=== PATIENT | female | born 1950 | race Caucasian/White ===

== ENCOUNTER 2019-10-18 00:03 | Outpatient (CLI) | payer BC, SELFPAY ==
[2019-10-18 16:10] LABS: SARS-CoV-2 RNA PCR Negative
== END 2019-10-18 00:04 | disposition home or self-care (01) ==
LOC: ANHCOVIDDT 00:03
PROVIDERS: PCP Internal Medicine; Visit Provider Internal Medicine Gastroenterology
DX: Z01.818 Encounter for other preprocedural examination (principal); Z11.59 Encounter for screening for other viral diseases; Z80.0 Family history of malignant neoplasm of digestive organs
CPT/HCPCS: 87635; C9803; U0003

== ENCOUNTER 2019-10-20 01:25 | Day surgery (SDC) | payer BC, SELFPAY ==
[2019-10-12 09:48] VITALS: BMI 31.1
[2019-10-20 06:44] VITALS: BMI 32.0
[2019-10-20 06:45] VITALS: BP 147/97; PULSE 79; RESP 16; TEMP 36.1; O2SAT 97
[2019-10-20] MEDS: LACTATED RINGERS 1,000 ML 150 ML IV CONT (06:52)
--- NOTE | 2019-10-20 07:21 | WPDANESEPPF ---
Anes - Initial Pre Proc Eval Procedure: Operation Date: 10/20/19 07:30 Proposed Procedures p Screening Colonoscopy - Sony Lopez MD Date/Time: 10/20/19 07:21 Surgeon: Sony Lopez MD Pre Op Diagnosis: Fm Hx Colon CA Patient Data Age: 68 Gender: F Height: 5 ft 5 in Weight: 87.3 kg Last Vital Signs Temp 97 F L 10/20/19 06:45 Pulse 79 10/20/19 06:45 Resp 16 10/20/19 06:45 BP 147/97 H 10/20/19 06:45 Pulse Ox 97 10/20/19 06:45 Allergies Allergy/AdvReac Type Severity Reaction Status Date / Time clarithromycin Allergy Unknown Gastrointestinal Verified 10/20/19 06:42 Upset Sulfa (Sulfonamide Allergy Unknown Gastrointestinal Verified 10/20/19 06:42 Antibiotics) Upset Home Medications Medication Instructions Recorded Confirmed Type valsartan 320 mg tablet 320 mg PO DAILY #90 tablet 06/29/19 10/12/19 Rx pantoprazole 40 mg tablet,delayed 40 mg PO BID #180 tablet 09/16/19 10/12/19 Rx release aspirin 81 mg PO DAILY 10/12/19 10/12/19 History calcium carbonate [Calcium 500] 500 mg PO DAILY 10/12/19 10/12/19 History levothyroxine 137 mcg PO DAILY 10/12/19 10/12/19 History omega 8-xbk-oeg-fish oil [Fish Oil] 1 cap PO DAILY 10/12/19 10/12/19 History Patient hx anesthesia problems: none Family hx anesthesia problems: none [facility] Past Medical History Medical History (Updated 10/20/19 @ 07:21 by Wei Banuelos MD) Adult hypothyroidism Chronic GERD Primary malignant neoplasm of breast Social History Social History Smoking status: Never smoker Alcohol intake: current Anes - Eval Final PreProcedure Day of Procedure 10/20/19 07:21 Patient weight: overweight Heart: regular rate and rhythm Lungs: clear to auscultation Airway: Mallampati scale class II Neurological: alert and oriented Last oral intake: >/= 8 hours ASA classification: III Emergent: no Anesthetic plan: proceed Anesthesia type and monitoring: general GIVS and standard monitoring Informed Consent: The patient's anesthetic plan and its attendant risks and benefits were discussed with the patient/family/POA. Questions were solicited and answers provided to the satisfaction of the patient/family/POA.
--- NOTE | 2019-10-20 07:49 | WPDGICN ---
Assessment and Plan Assessment and plan (1) Family history of malignant neoplasm of colon in relative diagnosed when younger than 50 years of age: Code(s): Z80.0 - Family history of malignant neoplasm of digestive organs Status: Acute Assessment and Plan: Family history of colon cancer in her sister at age 38. She also had colon cancer family history in her grandmother of colon cancer. Plan is for surveillance colonoscopy now and at 5 year intervals in the future. GI Consult Note Consult date/time: 10/20/19 07:49 HPI: Angelica Pearson is a 68 year old female Seen in evaluation at the request of PIT OPERATOR Terrell Edgar. Patient presents for screening colonoscopy. Last exam was 10 years prior to this. Her current weight appetite bowel movements are normal. She denies abdominal pain or bowel habits are normal. She denies any blood in her stools. Her weight has remained stable. Family history is significant her grandmother with colon cancer. Her sister had colon cancer at age 38. Past medical history is significant for thyroid surgery and breast cancer. Review of Systems Review of Systems: All systems reviewed & are unremarkable except as noted in HPI and below PMFSH Past Medical History Medical History Adult hypothyroidism Chronic GERD Primary malignant neoplasm of breast Family History Family History Father Hypertension Family history of coronary artery disease Family history of heart disease in male family member before age 55 Family history of diabetes mellitus in first degree relative Sibling Carcinoma of colon Grandparent Family history of coronary artery disease Carcinoma of colon Other Cerebrovascular accident Diabetes mellitus Family history of cardiovascular disease Family history of gout Family history of malignant neoplasm Family history of malignant neoplasm of male breast Social History Social History Smoking status: Never smoker Alcohol intake: current Meds Home Medications and Allergies Home Medications Medication Instructions Recorded Confirmed Type valsartan 320 mg tablet 320 mg PO DAILY #90 tablet 06/29/19 10/12/19 Rx pantoprazole 40 mg tablet,delayed 40 mg PO BID #180 tablet 09/16/19 10/12/19 Rx release aspirin 81 mg PO DAILY 10/12/19 10/12/19 History calcium carbonate [Calcium 500] 500 mg PO DAILY 10/12/19 10/12/19 History levothyroxine 137 mcg PO DAILY 10/12/19 10/12/19 History omega 7-trb-xdb-fish oil [Fish Oil] 1 cap PO DAILY 10/12/19 10/12/19 History Allergies Allergy/AdvReac Type Severity Reaction Status Date / Time clarithromycin Allergy Unknown Gastrointestinal Verified 10/20/19 06:42 Upset Sulfa (Sulfonamide Allergy Unknown Gastrointestinal Verified 10/20/19 06:42 Antibiotics) Upset Vital Signs Vital Signs - 24 hr 10/20/19 06:45 Temperature 36.1 C L Pulse Rate 79 Respiratory Rate 16 Blood Pressure 147/97 H Pulse Oximetry 97 Exam Narrative: Exam Narrative: Physical exam reveals her to be alert. Vital signs stable. HEENT exam unremarkable. She is anicteric. Lungs are clear to auscultation and percussion. Heart is without murmur or extra sounds. Abdominal exam bowel sounds are present soft nontender with no organomegaly. Digital external rectal exam is normal.
[2019-10-20 07:50] VITALS: BP 130/77; PULSE 87; RESP 19; O2SAT 96
[2019-10-20 08:00] VITALS: BP 135/82; PULSE 78; RESP 14; O2SAT 98
[2019-10-20 08:10] VITALS: BP 147/77; PULSE 80; RESP 24; O2SAT 100
== END 2019-10-20 08:19 | disposition home or self-care (01) ==
PROVIDERS: PCP Internal Medicine; Visit Provider Internal Medicine Gastroenterology
PROC: 0DJD8ZZ Inspection of Lower Intestinal Tract, Via Natural or Artificial Opening Endoscopic (ICD-10-PCS; CPT 45378; principal; 2019-10-20 07:30)
DX: Z12.11 Encounter for screening for malignant neoplasm of colon (principal); K63.5 Polyp of colon; K64.8 Other hemorrhoids; Z80.0 Family history of malignant neoplasm of digestive organs; E03.9 Hypothyroidism, unspecified; K21.9 Gastro-esophageal reflux disease without esophagitis; Z79.82 Long term (current) use of aspirin; Z85.3 Personal history of malignant neoplasm of breast
CPT/HCPCS: 45385; 88305; J2704; J7120

== ENCOUNTER 2021-08-17 09:03 | Outpatient (CLI) | payer BC, SELFPAY ==
--- NOTE | ~2021-08-17 | DEXA_ITS ---
Bone Density Report Name: ARON LI Age: 70 Sex: Female Ethnicity: White Date of : 1950 Indication: postmenopausal; height loss; cancer; Referring Provider: FLORENTIN ALEJANDRE Study: Bone densitometry was performed. Exam Date: August 17, 2021 Accession number: [id number] Bone Density: Region BMD T-score Z-score Classification AP Spine (L1-L4) 1.204 1.4 3.4 Normal Femoral Neck (Left) 0.780 -0.6 1.1 Normal Total Hip (Left) 1.050 0.9 2.3 Normal Total Hip Bilateral Avg 1.047 0.8 2.3 Normal Femoral Neck (Right) 0.864 0.1 1.9 Normal Total Hip (Right) 1.042 0.8 2.2 Normal World Health Organization criteria for BMD impression classify patients as: Normal (T-score at or above -1.0), Osteopenia (T-score between -1.0 and -2.5), or Osteoporosis (T-score at or below -2.5). 10-year Fracture Risk: FRAX not reported because: All T-scores for Spine Total, Hip Total, Femoral Neck at or above -1.0 Previous Exams: Region Exam Age BMD T-score BMD Change BMD Change Date g/cm2 vs Baseline vs Previous AP Spine(L1-L4) 08/17/2021 70 1.204 1.4 0.037(3.2%)* 0.037(3.2%)* 07/22/2018 67 1.167 1.1 Total Hip(Left) 08/17/2021 70 1.050 0.9 0.011(1.0%) 0.011(1.0%) 07/22/2018 67 1.040 0.8 Total Hip(Right) 08/17/2021 70 1.042 0.8 0.033(3.3%)* 0.033(3.3%)* 07/22/2018 67 1.009 0.6 *Denotes significance at 95% confidence level, LSC for AP Spine = 0.022 g/cm2, LSC for Total Hip = 0.027 g/cm2 Clinical Information Provided by Patient: Has used the following medications: Vitamin D, Calcium Has the following medical conditions: Cancer, THYROID, BREAST Patient maximum height was 66 Menopause Age: 54 Onset of menses at age 13 Number of children 2 Impression: The patient has normal bone mass. No significant bone loss was observed. Discussion: BONE DENSITY IS ABOVE THE MINIMUM DESIRABLE LEVEL AT ALL SKELETAL SITES TESTED. This patient?s bone mineral density is above the minimum desirable level (T-score -1.0 or better) at all sites measured. The patient should follow a healthful lifestyle (good nutrition with adequate calcium and vitamin D, and appropriate weight-bearing exercise). Follow-Up: Consider repeating this study in 5 years or sooner if there is some new clinical indication. Reported by: PEDRO on 08/17/2021 9:26:00 AM. Reviewed, dictated and finalized at location Natalee HOFFMAN
== END 2021-08-17 09:04 | disposition home or self-care (01) ==
LOC: ANHIMG 09:06
PROVIDERS: PCP Internal Medicine; Visit Provider Nurse Practitioner
DX: Z78.0 Asymptomatic menopausal state (principal)
CPT/HCPCS: 77080

== ENCOUNTER 2021-09-19 09:48 | Outpatient (CLI) | payer BC, SELFPAY | END 2021-09-19 09:49 | disposition home or self-care (01) | LOC: ANHAUDASC 09:49 | PROVIDERS: PCP Internal Medicine; Visit Provider Otolaryngology | DX: H91.92 Unspecified hearing loss, left ear (principal) | CPT/HCPCS: 92557; 92567 ==

== ENCOUNTER 2024-11-24 12:38 | Outpatient (CLI) | payer BC, SELFPAY ==
--- NOTE | ~2024-11-24 | XR_ITS ---
Clinical Indication: Shortness of breath PA and lateral views of the chest: Comparison: 04/21/2017 Findings: Probable minimal pleural effusions and minimal bibasilar atelectasis. There are subcentimet er nodules in the right upper lobe. Cardiomediastinal silhouette is within normal limits. Bones and s oft tissues are unremarkable. Impression: Minimal pleural effusions and minimal bibasilar atelectasis. Subcentimeter nodules in the right upper lobe, nonspecific. CT advised to evaluate. Reviewed, dictated and finalized at location M. Impression: Minimal pleural effusions and minimal bibasilar atelectasis. Subcentimeter nodules in the right upper lobe, nonspecific. CT advised to evalu ate.
--- OUTSIDE RECORDS SUMMARY | 2024-11-24 12:43 | XMS_ITS | Referral Summary ---
Author Organization [facility] al Address [address] [place] [address] Care Team Providers Care Waste And Batting Waste Chopper Name Role Phone Gonzalo Crenshaw DO Primary Care Provider [phone] Encounters Date Type Department Care Team Description 10/04/2024 3:20 PM CDT Office Visit [facility] Endocrinology Metabolism and Lipid [address], [address] [place] [address] John Weaver MD Post-surgical hypothyroidism (Primary Dx); Papillary thyroid carcinoma (HCC) 09/21/2024 Telephone [facility] Endocrinology Metabolism and Lipid [address] [facility] [address] [place] [address] [place] [address] Aracelis Mckeon RN from Last 3 Months Allergies Active Allergy Reactions Criticality Noted Date Comments Sulfa (Sulfonamide Antibiotics) Stomach upset Low Medications Ca-D3-mag dz-pcrj-avv-racheal -bor 600 mg calcium- 20 mcg-50 mg tablet daily. Act sedrick omega-3 fatty acids-fish oil 300-1,000 mg capsule daily. Active pantoprazole DR (PROTONIX) 40 mg EC tablet 2 times daily. Active cholecalciferol (VITAMIN D-3) 1,000 unit tablet daily. Active Lactobacillus acidophilus 10 billion cell capsule Take by mouth once. Active valsartan-hydroc hlorothiazide (DIOVAN-HCT) 320-25 mg per tablet Take 1 tablet by mouth daily Active busPIRone (BUSPAR) 15 mg tablet Take by mouth 2 (two) times a day as needed 08/21/2022 Active levothyroxine (SYNTHROID) 100 mcg tablet TAKE 1 TABLET BY MOUTH 6 DAYS EVERY WEEK AND 2 TABLET WITHOUT 1 DAY A WEEK. TOTAL OF 8 TABLETS A WEEK 104 tablet 3 05/04/2024 Active Active Problems Problem Noted Date Diagnosed Date Chest wall erythema 09/16/2022 Assessment & Plan (09/16/2022 3:37 PM CDT): Itching and patient history suggest contact dermatitis, reports this improves with systemic steroids Will give short course PO prednisone and advised to contact her PCP or automobile club information clerk Advised topical HC for itching as well History of breast cancer 06/23/2019 Encounter for gynecological examination without abnormal finding 05/27/2019 History of left mastectomy 05/27/2019 Post-surgical hypothyroidism 09/14/2018 Assessment & Plan (10/04/2024 3:19 PM CDT): Continue current levothyroxine dose. TSH at goal Assessment & Plan (09/22/2023 3:45 PM CDT): Continue current levothyroxine dose. TSH at goal Assessment & Plan (09/16/2022 3:35 PM CDT): Continue current levothyroxine dose. Will check thyroid function test and adjust levothyroxine dose accordingly. Assessment & Plan (09/17/2021 4:20 PM CDT): Continue current levothyroxine dose. Will check thyroid function test and adjust levothyroxine dose accordingly. TSH goal lower normal Assessment & Plan (09/18/2020 5:20 PM CDT): Lower levothyroxine dose to 100 mcg every day Will recheck TFT in 2-3 months TSH goal lower normal Assessment & Plan (09/14/2018 2:38 PM CDT): Continue levothyroxine 150 mcg daily Advised goal is lower normal Advised about proper intake and to separate from PPI and calcium supplements Papillary thyroid carcinoma 09/14/2018 Assessment & Plan (10/04/2024 3:19 PM CDT): No evidence of tumor recurrence on biochemical and radiological data so far Will plan follow-up with thyroid function test with a TSH goal normal. Biochemical evaluation with thyroid tumor markers Plan future neck ultrasound as indicated/needed Assessment & Plan (09/22/2023 3:50 PM CDT): No evidence of tumor recurrence on biochemical and radiological data so far Will plan follow-up with thyroid function test with a TSH goal normal. Biochemical evaluation with thyroid tumor markers - still ending Plan future neck ultrasound as indicated/needed Assessment & Plan (09/16/2022 3:36 PM CDT): No evidence of tumor recurrence on biochemical and radiological data so far Will plan follow-up with thyroid function test with a TSH goal normal. Biochemical evaluation with thyroid tumor markers. Plan future neck ultrasound as indicated Assessment & Plan (09/17/2021 4:21 PM CDT): No evidence of tumor recurrence on biochemical and radiological data so far Will plan follow-up with thyroid function test with a TSH goal lower normal. Biochemical evaluation with thyroid tumor markers. Plan future neck ultrasound as indicated Assessment & Plan (09/18/2020 5:26 PM CDT): No evidence of tumor recurrence on biochemical and radiological data so far Labs reviewed: TSH remain supressed - Tumor markers undetected Will plan follow-up with thyroid function test with a TSH goal lower normal. Biochemical evaluation with thyroid tumor markers. 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 Malignant neoplasm of breast 06/11/2017 Malignant neoplasm of thyroid gland 06/11/2017 Absence of breast 04/24/2016 Gastroesophageal reflux disease 05/05/2013 Hypertension 05/05/2013 Malignant neoplasm of breast 05/17/2011 Mass of breast 04/03/2011 Hyperlipidemia 03/28/2011 Cancer Immunizations Immunization Administration Dates Next Due Influenza, Quadrivalent, Carol l Culture-based MDCK, Preservative Free, Antibiotic Free, Intramuscular 06/07/2022,03/06/2017 Influenza, Quadrivalent, Hig h Dose, Preservative Free, Intrr 04/06/2020 Influenza, Trivalent, High D ose, Split, Preservative Free, Intramuscular 04/01/2019 Influenza, Unspecified 06/02/2014,06/28/2013 Pneumococcal Conjugate PCV 13 04/06/2020, 019 Tdap 07/07/2019 Social History Tobacco Use Types Packs/Day Years Used Date Smoking Tobacco: Never Smokeless Tobacco: Never Tobacco Cessation:Counseling Given: Not Answered Alcohol Use Standard Drinks/Week Comments No 0 (1 standard drink = 0.6 oz pur e alcohol) AUDIT-C Answer Date Recorded Q1: How often do you have a drink containing alc ohol? Monthly or less 08/20/2024 Q2: How many drinks containi ng alcohol do you have on a typical day when you are drinking? 1 or 2 08/20/2024 Q3: How often do you have si x or more drinks on one occasion? 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 Gender Identity Not on file Sexual Orientation Not on file Last Filed Vital Signs Vital Sign Reading Time Taken Comments Blood Pressure 127/81 10/04/2024 2:40 PM CDT Pulse 72 10/04/2024 2:40 PM CDT Temperature 36.3 C (97.3 F) 10/04/2024 2:40 PM CDT Respiratory Rate 17 10/04/2024 2:40 PM CDT Oxygen Saturation 98% 10/04/2024 2:40 PM CDT Inhaled Oxygen Concentration - - Weight 87.2 kg (192 lb 3.2 oz) 10/04/2024 2:40 P M CDT Height 165.1 cm (5' 5) 10/04/2024 2:40 PM CDT Body Mass Index 31.98 10/04/2024 2:40 PM CDT Plan of Treatment Not on file Procedures Procedure Name Priority Date/Time Associated Diagnosis Comments THYROGLOBULIN Routine 09/24/2024 9:24 AM CDT THYROID CAN MONITOR Routine 09/24/2024 9 :24 AM CDT Papillary thyroid carcinoma (HCC) T4, FREE Routine 09/24/2024 9:24 AM CDT Papillary thyroid carcinoma (HCC) TSH Routine 09/24/2024 9:24 AM CDT Papillary thyroid carcinoma (HCC) SCREENING MAMMOGRAM RIGHT W ELADIO UNILATERAL ONLY Schedule Routine, Read Routine (OP Routine) 08/20/2024 10:36 AM CDT Screening mammogram, encounter for from Last 3 Months or Most Recently Relevant to Health Maintenance Results * THYROGLOBULIN (09/24/2024 9:24 AM CDT) Thyroglobulin <0.1 ng/mL [facility], Comment: Reference Range: Athyrotic: <0.1 Reference range applies to differentiated thyroid cancer patients following treatment. The presence of measurable thyroglobulin indicates the presence of thyroglobulin-producing thyroid tissue. Clinical correlation is advised. This Thyroglobulin test was performed using the Nayeli Altenburg Chemiluminescent method. Values obtained from different assay methods cannot be used interchangeably. Thyroglobulin levels, regardless of value, should not be interpreted as absolute evidence of the presence or absence of disease. 09/24/2024 9:24 AM CDT 09/24/2024 9:25 AM CDT Narrative [facility] - 09/29/2024 3:16 PM CDT FASTING:YES FASTING: YES John Weaver MD LAB BLOOD ORDERABLES Final Resu lt [facility], [address] [place] [address] * Thyroid Cancer (Thyroglobulin) Monitor (09/24/2024 9:24 AM CDT) Thyroglobulin ab <1 < OR = 1 IU/mL [facility], Comment: This Thyroglobulin antibody test was performed using the Nayeli Altenburg Chemiluminescent method. Values obtained from different assay methods cannot be used interchangeably. Thyroglobulin antibody levels, regardless of value, should not be interpreted as absolute evidence of the presence or absence of disease. Blood 09/24/2024 9:24 AM CDT 09/24/2024 9:25 AM CDT Narrative [facility] - 09/29/2024 3:16 PM CDT FASTING:YES FASTING: YES John Weaver MD LAB BLOOD ORDERABLES Final Resu lt Performing Organization Address [facility]/ZIP Co de Phone Number [facility], [address] [place] [address] * TSH (09/24/2024 9:24 AM CDT) TSH 0.64 0.40 - 4.50 mIU/L [facility] Blood 09/24/2024 9:24 AM CDT 09/24/2024 9:25 AM CDT Narrative [facility] - 09/29/2024 3:16 PM CDT FASTING:YES FASTING: YES us John Weaver MD LAB BLOOD ORDERABLES Final Resu lt [facility] [address] [place] [address] * T4, free (09/24/2024 9:24 AM CDT) Free T4 1.5 0.8 - 1.8 ng/dL [facility] Blood 09/24/2024 9:24 AM CDT 09/24/2024 9:25 AM CDT Narrative [facility] - 09/29/2024 3:16 PM CDT FASTING:YES FASTING: YES John Weaver MD LAB BLOOD ORDERABLES Final Resu lt [facility] [address] [place] [address] * Screening Mammogram Right W Eladio Unilateral Only (08/20/2024 10:36 AM CDT) Anatomical Region Laterality Modality Breast Right Mammography Narrative 08/23/2024 10:51 AM CDT Mammogram Technique: Right Breast Digital Breast Tomosynthesis, Unilateral C-view 2D Screening mammogram. Views obtained: right craniocaudal and right mediolateral oblique. Computer Aided Detection was performed. Mammogram Findings: The present examination has been compared to prior imaging studies performed at [facility] on 07/04/2021, 07/31/2022 and 08/06/2023. There are scattered areas of fibroglandular density. There is no suspicious abnormality in the right breast. Patient status post contralateral mastectomy for personal history of breast cancer. Impression: There is no mammographic evidence of malignancy. Annual screening mammography is recommended. OVERALL FINAL ASSESSMENT: BI-RADS CATEGORY 1: Negative. Procedure Note Susi Tompkins MD - 08/23/2024 Mammogram Technique: Right Breast Digital Breast Tomosynthesis, Unilateral C-view 2DScreening mammogram. Views obtained: right craniocaudal and right mediolateral oblique. Computer Aided Detection was performed. Mammogram Findings: The present examination has been compared to prior imaging studies performed at [facility] on 07/04/2021, 07/31/2022 and 08/06/2023. There are scattered areas of fibroglandular density. There is no suspicious abnormality in the right breast. Patient status post contralateral mastectomy for personal history ofbreast cancer. Impression: There is no mammographic evidence of malignancy. Annual screening mammography is recommended. OVERALL FINAL ASSESSMENT: BI-RADS CATEGORY 1: Negative. us Self Screening Mammogram IMG MAMMO PROCEDURES Fi nal Result from Last 3 Months or Most Recently Relevant to Health [place] [id number] MEDICARE [facility] Address: [address] [address] [place] [facility] ACCESS MEDICARE [facility] MEDICARE Care Teams Waste And Batting Waste Chopper Relationship Specialty Start Date End Date Gonzalo Crenshaw DO [address] [facility] [place] [address] PCP - General Internal Medicine 08/09/24
--- OUTSIDE RECORDS SUMMARY | 2024-11-24 12:43 | XMS_ITS | Encounter Summary ---
Author Organization [email or web address] Address [address] [place] [address] Phone Care Team Providers Care Atm Mechanic Name Role Phone Lavon Smith MD Primary Care Provider [phone] Gonzalo Crenshaw DO Primary Care Provider [phone] Shar Ricketts MD Primary Care Provider [phone] Gonzalo Crenshaw DO Primary Care Provider [phone] Encounter Details Date Type Department Care Team (Latest Contact Info) Description 09/07/2015 Orders Only [facility] Scanning, Provider Social History Tobacco Use Types Packs/Day Years Used Date Smoking Tobacco: Never Assessed Comments Unknown Sex and Gender Information Value Date Recorded Sex Assigned at Not on file 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 Gender Identity Not on file Sexual Orientation Not on file documented as of this encounter Plan of Treatment Not on file documented as of this encounter Procedures Procedure Name Priority Date/Time Associated Diagnosis Comments SCAN - LABS 09/07/2015 documented in this encounter Results * SCAN - LABS (09/07/2015) us Provider Scanning Final Result documented in this encounter Visit Diagnoses Not on filedocumented in this encounter Care Teams Atm Mechanic Relationship Specialty Start Date End Date Lavon Smith MD [address] [facility] [place], [place] [id number] PCP - General 10/15/16 06/22/19 Gonzalo Crenshaw DO [address] [place] [address] PCP - General Internal Medicine 06/23/19 08/05/22 Shar Ricketts MD [address] [place] [address] PCP - General Internal Medicine 08/06/22 08/08/24 Gonzalo Crenshaw DO [address] [place] [address] PCP - General Internal Medicine 08/09/24 documented as of this encounter
--- OUTSIDE RECORDS SUMMARY | 2024-11-24 12:43 | XMS_ITS | Clinical Summary ---
Author Organization 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 Malignant neoplasm of breast 06/11/2017 Malignant neoplasm of thyroid gland 06/11/2017 Absence of breast 04/24/2016 Gastroesophageal reflux disease 05/05/2013 Hypertension 05/05/2013 Malignant neoplasm of breast 05/17/2011 Mass of breast 04/03/2011 Hyperlipidemia 03/28/2011 Cancer Encounters Date Type Department Care Team Description 10/04/2024 3:20 PM CDT Office Visit [facility] Endocrinology Metabolism and Lipid [address] [facility] [address], [address] [place] [address] John Weaver MD Post-surgical hypothyroidism (Primary Dx); Papillary thyroid carcinoma (HCC) 09/21/2024 Telephone [facility] Endocrinology Metabolism and Lipid [address] 5th [place] [address] [place] [address] Aracelis Mckeon RN from Last 3 Months Immunizations Immunization Administration Dates Next Due Influenza, Quadrivalent, Carol l Culture-based MDCK, Preservative Free, Antibiotic Free, Intramuscular 06/07/2022,03/06/2017 Influenza, Quadrivalent, Hig h Dose, Preservative Free, Intrr 04/06/2020 Influenza, Trivalent, High D ose, Split, Preservative Free, Intramuscular 04/01/2019 Influenza, Unspecified 06/02/2014,06/28/2013 Pneumococcal Conjugate PCV 13 04/06/2020, 019 Tdap 07/07/2019 Surgical History Surgery Date Site/Laterality Comments [place] DELIVERY ONLY Section - (Added by TW Conv) THYROIDECTOMY, PARTIAL Near-Total Thyroidectomy - (Added by TW Conv) MASTECTOMY Breast Surgery Mastectomy - (Added by TW Conv) CA COLONOSCOPY FLX DX W/DAINA J SPEC WHEN PFRMD Complete Colonoscopy - (Added by TW Conv) Medical History Medical History Date Comments Personal history of malignan t neoplasm of thyroid Thyroid Cancer - (Added by T W Conv) Encounter for gynecological examination without abnormal finding Encounter for routine gyneco logical examination - (Added by TW Conv) Pelvic and perineal pain Pelvic pain - (Added by TW Conv) Acute myocardial infarction (HCC) Acute myocardial infarction - (Added by TW Conv) Personal history of malignan t neoplasm of thyroid History of thyroid cancer - (Added by TW Conv) History of recurrent pneumonia H istory of pneumonia - (Added by TW Conv) Migraine without status migr ainosus, not intractable Migraine - (Added by TW Conv ) Hypertension High cholesterol Cancer (HCC) 2010 lEFT BREAST MASECTOMY Family History Medical History Relation Name Comments Diabetes Father Diabetes Mellit us - (Added by TW Conv) Heart disease Father Heart Disease - (Added by TW Conv) Colon cancer Maternal Grandmother alive at 97 Mother Breast cancer Mother's Sister Great Breast Canc er - (Added by TW Conv) MEDICAL TRANSCRIPTION RADIOLOGY malignancy Niece Colon cancer Sister Alive at age 67 Relation Name Status Comments Daughter Alive Father Maternal Grandmother Mother Alive Mother's Sister Great Niece Alive Sister Alive Son Alive Social History Tobacco Use Types Packs/Day Years [...] on file 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 Gender Identity Not on file Sexual Orientation Not on file Obstetrics History Para Term AB IAB SAB Ectopic Multiple Livin g Live Births 2 2 2 Date Outcome GA Total Labor Labor/2nd/3rd Weight Sex Type Anes PTL Jennifer A1 A5 Name Clin Para Para Last Filed Vital Signs Vital Sign Reading [...] 10/04/2024 2:40 PM CDT Plan of Treatment Health Maintenance Due Date Last Done Comments Colon Cancer Screening-Colonoscopy 1950 Depression Screening 1950 Fall Risk Assessment 1950 Hepatitis C Screening 1950 Osteoporosis Screening-Bone Density Scan 1952 Hepatitis B Screening 1970 Zoster Vaccine (1 of 2) 2002 Pneumococcal vaccine 65+ (2 of 2 - PPSV23) 04/06/2021 04/06/2020, 04/01/2019 Covid-19 Vaccine (2023-2 5 season) 2024 03/01/2021, 07/24/2020, 07/01/2020 Influenza Vaccine (#1) 2025 3, 04/06/2020, 04/01/2019, Additional history exists Breast Cancer Screening-Mammogram 08/20/2025 08/20/2024, 08/06/2023, 07/31/2022, Additional history exists Well Visit 65+ 08/20/2025 08/20/2024 DTaP/Tdap/Td Vaccine (2 - Td or Tdap) 07/07/2029 07/07/2019 Procedures Procedure Name Priority Date/Time Associated Diagnosis [...] (09/24/2024 9:24 AM CDT) Thyroglobulin <0.1 ng/mL [facility], Comment: Reference Range: Athyrotic: <0.1 Reference range applies to differentiated thyroid cancer patients following treatment. The presence of measurable thyroglobulin indicates the presence of thyroglobulin-producing thyroid tissue. Clinical correlation is advised. This Thyroglobulin test was performed using the Nayeli [place] Chemiluminescent method. Values obtained from different assay methods cannot be used interchangeably. Thyroglobulin levels, regardless of value, should not be interpreted as absolute evidence of the presence or absence of disease. 09/24/2024 9:24 AM CDT 09/24/2024 9:25 AM CDT Narrative [facility] - 09/29/2024 3:16 PM CDT FASTING:YES FASTING: YES John Weaver MD LAB BLOOD ORDERABLES Final Resu lt Performing Organization Address [facility] Co de Phone Number [facility], [address] [place] [address] * Thyroid Cancer (Thyroglobulin) Monitor (09/24/2024 9:24 AM CDT) Pathologist [facility] Thyroglobulin ab <1 < OR = 1 IU/mL [employer]/N [facility], Comment: This Thyroglobulin antibody test was performed using the Brandtone Chemiluminescent method. Values obtained from different assay [...] ORDERABLES Final Resu lt Performing Organization Address [facility] de Phone Number [employer], [address] [place] [address] * TSH (09/24/2024 9:24 AM CDT) [facility] TSH 0.64 0.40 - 4.50 mIU/L [facility] Blood 09/24/2024 9:24 AM CDT 09/24/2024 9:25 AM CDT Narrative [facility] - 09/29/2024 3:16 PM CDT FASTING:YES FASTING: YES us John Weaver MD LAB BLOOD ORDERABLES Final Resu lt Performing Organization Address City/[facility]/ZIP Co de Phone Number [facility] [address] [place] [phone] * T4, free (09/24/2024 9:24 AM CDT) Free T4 1.5 0.8 - 1.8 ng/dL [facility] Blood 09/24/2024 9:24 AM CDT 09/24/2024 9:25 AM CDT Narrative [facility] - 09/29/2024 3:16 PM CDT FASTING:YES FASTING: YES John Weaver MD LAB BLOOD ORDERABLES Final Resu lt PEGGY [facility] [address] [place] [address] * Screening Mammogram Right W Eladio Unilateral Only (08/20/2024 10:36 AM CDT) Anatomical Region Laterality Modality Breast Right Mammography Narrative 08/23/2024 10:51 AM CDT Mammogram Technique: Right Breast Digital Breast Tomosynthesis, Unilateral C-view 2D Screening mammogram. Views obtained: right craniocaudal and right mediolateral oblique. Computer Aided Detection was performed. Mammogram Findings: The present examination has been compared to prior imaging studies performed at [facility] on 07/04/2021, 07/31/2022 and 08/06/2023. There are [...] compared to prior imaging studies performed at [facility] on 07/04/2021, 07/31/2022 and 08/06/2023. There are [...] Most Recently Relevant to Health Maintenance Insurance [employer] [place]IC[place] [employer] [place] [facility] MEDIC[facility] Care Teams Boat Joiner Relationship Specialty Start Date End Date Gonzalo Crenshaw DO [address] [address] PCP - General Internal Medicine 08/09/24
== END 2024-11-24 12:39 | disposition home or self-care (01) ==
PROVIDERS: PCP Nurse Practitioner; Visit Provider Internal Medicine
DX: J90 Pleural effusion, not elsewhere classified (principal); J98.11 Atelectasis; R91.8 Other nonspecific abnormal finding of lung field
CPT/HCPCS: 71046

== ENCOUNTER 2024-11-25 08:30 | Emergency (ER) | payer BC, SELFPAY ==
[2024-11-25] VITALS (9 sets, daily range): BP systolic 136–162; BP diastolic 79–94; PULSE 64–75; RESP 14–20; TEMP 36.5; O2SAT 94–98
--- NOTE | ~2024-11-25 | US_ITS ---
EXAMINATION: US venous doppler [facility] DATE: 11/25/2024 10:20 INDICATION: Swelling TECHNIQUE: Grayscale ultrasound images without and with compression and Doppler ultrasound images of the bilateral lower extremity veins were obtained. COMPARISON: None. FINDINGS: The visualized portions of right common femoral vein, profunda (deep) femoral vein, femoral vein, pop liteal vein, peroneal veins, posterior tibial veins, and greater saphenous vein outflow are patent. The visualized portions of left common femoral vein, profunda femoral vein, femoral vein, popliteal v ein, peroneal veins, posterior tibial veins, and greater saphenous vein outflow are patent. IMPRESSION: 1. No deep venous thrombosis. Reviewed, dictated and finalized at location A.
--- NOTE | ~2024-11-25 | CT_ITS ---
EXAMINATION: CTA chest PE protocol DATE: 11/25/2024 09:42 INDICATION: Shortness of breath. Recent travel. Positive d-dimer. TECHNIQUE: Computed tomography (CT) pulmonary angiogram of the chest was performed with 100 mL Omnipa que-350 intravenous contrast. Additional 3D reconstructions utilizing coronal maximum intensity proje ction (MIP) were performed. Automated exposure control and iterative reconstruction technique were em ployed. The dose-length product was 503.22 mGy-cm. COMPARISON: 09/20/2016 FINDINGS: No pulmonary embolism. Small bilateral dependently layering bilateral pleural effusions with compress esdrick atelectasis in the dependent lower lobes. Cluster of multiple small calcified nodules in the righ t upper lobe consistent with sequela of chronic granulomatous disease. No pulmonary edema or suspecte d pneumonia. No pneumothorax. Heart size is normal. No pericardial effusion. Thoracic aorta is normal in caliber with no dissection. Status post left mastectomy with left breast implant. No pathological ly enlarged thoracic lymphadenopathy. Small sliding-type hiatal hernia. Small amount of perihepatic a scites. Several low-attenuation hepatic cysts measuring up to 12 mm. IMPRESSION: 1. No pulmonary embolism. 2. Small bilateral pleural effusions with dependent compressive atelectasis in bilateral lower lobes. 3. Small amount of perihepatic ascites. 4. Small sliding-type hiatal hernia. Reviewed, dictated and finalized at location B.
--- OUTSIDE RECORDS SUMMARY | 2024-11-25 08:33 | XMS_ITS | Encounter Summary ---
Author Organization [facility] [employer] [facility] Address [address] [place] [address] Phone Care Team Providers Care Supervisor Plasma Name Role Phone Lavon Smith MD Primary Care Provider Gonzalo Crenshaw DO Primary Care Provider [phone] Shar Ricketts MD Primary Care Provider [phone] Gonzalo Crenshaw DO Primary Care Provider [phone] Encounter Details Date Type Department Care Team (Latest Contact Info) Description 09/07/2015 Orders Only [facility] Scanning, Provider Social History Tobacco Use Types Packs/Day Years Used Date Smoking Tobacco: Never Assessed Comments Unknown Sex and Gender Information Value Date Recorded Sex Assigned at Not on file 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 Gender Identity Not on file Sexual Orientation [...] on filedocumented in this encounter Care Teams Supervisor Plasma Relationship Specialty Start Date End Date Lavon Smith MD [address] [facility] MEDICINE [place], [place] [address] PCP - General 10/15/16 06/22/19 Gonzalo Crenshaw DO [address] [place] [address] PCP - General Internal Medicine 06/23/19 08/05/22 Shar Ricketts MD [address] [place] [address] PCP - General Internal Medicine 08/06/22 08/08/24 Gonzalo Crenshaw DO [address] [place] [address] PCP - General Internal Medicine 08/09/24 documented as of this encounter
--- OUTSIDE RECORDS SUMMARY | 2024-11-25 08:33 | XMS_ITS | Referral Summary ---
Author Organization [facility] al Address [address] [place] [address] Care Team Providers Care Auto Clocks Repairer Name Role Phone Gonzalo Crenshaw DO Primary Care Provider Encounters Date Type Department Care Team Description 10/04/2024 3:20 PM CDT Office Visit [facility] Endocrinology Metabolism and Lipid [address] Floor 1, [address] [place] [address] John Weaver MD Post-surgical hypothyroidism (Primary Dx); Papillary thyroid carcinoma (HCC) 09/21/2024 Telephone [facility] Endocrinology Metabolism and Lipid [address] 5th [place] [address] [place] [address] Aracelis Mckeon RN from Last 3 Months Allergies Active Allergy Reactions Criticality Noted Date Comments Sulfa (Sulfonamide Antibiotics) Stomach upset Low Medications Ca-D3-mag ho-djrv-idb-racheal -bor 600 mg calcium- 20 mcg-50 mg [...] and advised to contact her PCP or veneer joiner Advised topical HC for itching as well [...] on file 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, Comment: Reference Range: Athyrotic: <0.1 Reference range applies to differentiated thyroid cancer patients following treatment. The presence of measurable thyroglobulin indicates the presence of thyroglobulin-producing thyroid tissue. Clinical correlation is advised. This Thyroglobulin test was performed using the Nayeli [place] Chemiluminescent method. Values obtained from different assay methods cannot be used interchangeably. Thyroglobulin levels, regardless of value, should not be interpreted as absolute evidence of the presence or absence of disease. 09/24/2024 9:24 AM CDT 09/24/2024 9:25 AM CDT Narrative [facility] - 09/29/2024 3:16 PM CDT FASTING:YES FASTING: YES John Weaver MD LAB BLOOD ORDERABLES Final Resu lt [facility], [address] [place] [address] * Thyroid Cancer (Thyroglobulin) Monitor (09/24/2024 9:24 AM CDT) Thyroglobulin ab <1 < OR = 1 IU/mL [facility], Comment: This Thyroglobulin antibody test was performed using the Nayeli [place] Chemiluminescent method. Values obtained from different assay methods cannot be used interchangeably. Thyroglobulin antibody levels, regardless of value, should not be interpreted as absolute evidence of the presence or absence of disease. Blood 09/24/2024 9:24 AM CDT 09/24/2024 9:25 AM CDT Narrative [facility] - 09/29/2024 3:16 PM CDT FASTING:YES FASTING: YES John Weaver MD LAB BLOOD ORDERABLES Final Resu lt Performing Organization Address [facility]/ZIP Co de Phone Number [facility], [address] [place] [address] * TSH (09/24/2024 9:24 AM CDT) TSH 0.64 0.40 - 4.50 mIU/L [facility] Blood 09/24/2024 9:24 AM CDT 09/24/2024 9:25 AM CDT Narrative [facility] - 09/29/2024 3:16 PM CDT FASTING:YES FASTING: YES us John Weaver MD LAB BLOOD ORDERABLES Final Resu lt [facility] [address] [place] [address] * T4, free (09/24/2024 9:24 AM CDT) Free T4 1.5 0.8 - 1.8 ng/dL [facility] Blood 09/24/2024 9:24 AM CDT 09/24/2024 9:25 AM CDT Narrative [facility] - 09/29/2024 3:16 PM CDT FASTING:YES FASTING: YES John Weaver MD LAB BLOOD ORDERABLES Final Resu lt [facility] [address] [place] [address] * Screening Mammogram Right W Eladio Unilateral [...] prior imaging studies performed at [facility] on 07/04/2021, 07/31/2022 and 08/06/2023. There are [...] prior imaging studies performed at [facility] on 07/04/2021, 07/31/2022 and 08/06/2023. There are [...] Most Recently Relevant [place] [id number] [place]ARE [place] [facility] MEDICARE [facility] MEDICARE Care Teams Auto Clocks Repairer Relationship Specialty Start Date End Date Gonzalo Crenshaw DO [address] [facility] [place] [address] PCP - General Internal Medicine 08/09/24
--- OUTSIDE RECORDS SUMMARY | 2024-11-25 08:33 | XMS_ITS | Clinical Summary ---
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 Advised topical HC for itching as well [...] Description 10/04/2024 3:20 PM CDT Office Visit [facility] Endocrinology Metabolism and Lipid [address] [facility] Floor [address], [address] [place] [address] John Weaver MD Post-surgical hypothyroidism (Primary Dx); Papillary thyroid carcinoma (HCC) 09/21/2024 Telephone [facility] Endocrinology Metabolism and Lipid [address] [facility] 5th [place] [address] [place] [address] Aracelis Mckeon RN from Last 3 Months Immunizations Immunization Administration Dates Next Due Influenza, Quadrivalent, Carol l Culture-based MDCK, Preservative Free, Antibiotic Free, Intramuscular 06/07/2022,03/06/2017 Influenza, Quadrivalent, Hig h Dose, Preservative Free, Intrr 04/06/2020 Influenza, Trivalent, High D ose, Split, Preservative Free, Intramuscular 04/01/2019 Influenza, Unspecified 06/02/2014,06/28/2013 Pneumococcal Conjugate PCV 13 04/06/2020, 019 Tdap 07/07/2019 Surgical History Surgery Date Site/Laterality Comments [place] DELIVERY ONLY Section - (Added by TW Conv) THYROIDECTOMY, PARTIAL Near-Total Thyroidectomy - (Added by TW Conv) MASTECTOMY Breast Surgery Mastectomy - (Added by TW Conv) [place] COLONOSCOPY FLX DX W/DAINA J SPEC WHEN [...] Canc er - (Added by TW Conv) 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 The presence of measurable thyroglobulin indicates the presence of thyroglobulin-producing thyroid tissue. Clinical correlation is advised. This Thyroglobulin test was performed using the Nayeli [place] Chemiluminescent method. Values obtained from different assay methods cannot be used interchangeably. Thyroglobulin levels, regardless of value, should not be interpreted as absolute evidence of the presence or absence of disease. 09/24/2024 9:24 AM CDT 09/24/2024 9:25 AM CDT Narrative [facility] - 09/29/2024 3:16 PM CDT FASTING:YES FASTING: YES John Weaver MD LAB BLOOD ORDERABLES Final Resu lt Performing Organization Address [facility] Co de Phone Number [employer], [address] [place] [address] * Thyroid Cancer (Thyroglobulin) Monitor (09/24/2024 9:24 AM CDT) Pathologist [facility] Thyroglobulin ab <1 < OR = 1 IU/mL [facility]/N [facility], Comment: This Thyroglobulin antibody test was performed using the Bl[employer]s Chemiluminescent method. Values obtained from different assay [...] ORDERABLES Final Resu lt Performing Organization Address [facility] de Phone Number [employer]/[facility], [address] [place] [address] * TSH (09/24/2024 9:24 AM CDT) [facility] TSH 0.64 0.40 - 4.50 mIU/L [facility] Blood 09/24/2024 9:24 AM CDT 09/24/2024 9:25 AM CDT Narrative [facility] - 09/29/2024 3:16 PM CDT FASTING:YES FASTING: YES us John Weaver MD LAB BLOOD ORDERABLES Final Resu lt Performing Organization Address City/[facility]/ZIP Co de Phone Number [facility] [address] [place] [phone] * T4, free (09/24/2024 9:24 AM CDT) Free T4 1.5 0.8 - 1.8 ng/dL [facility] Blood 09/24/2024 9:24 AM CDT 09/24/2024 9:25 AM CDT Narrative [facility] - 09/29/2024 3:16 PM CDT FASTING:YES FASTING: YES John Weaver MD LAB BLOOD ORDERABLES Final Resu lt PEGGY [facility] [address] [place] [phone] * Screening Mammogram Right W Eladio Unilateral Only (08/20/2024 10:36 AM CDT) Anatomical Region Laterality Modality Breast Right Mammography Narrative 08/23/2024 10:51 AM CDT Mammogram Technique: Right Breast Digital Breast Tomosynthesis, Unilateral C-view 2D Screening mammogram. Views obtained: right craniocaudal and right mediolateral oblique. Computer Aided Detection was performed. Mammogram Findings: The present examination has been compared to prior imaging studies performed at [facility] on 07/04/2021, 07/31/2022 and 08/06/2023. There [...] compared to prior imaging studies performed at [facility] on 07/04/2021, 07/31/2022 and 08/06/2023. There [...] Most Recently Relevant to Health Maintenance Insurance [employer] [place] MEDICARE [employer] [place] [facility] MEDICARE [facility] MEDICARE Care Teams Screen Making Technician Relationship Specialty Start Date End Date Gonzalo Crenshaw DO [address] [address] PCP - General Internal Medicine 08/09/24
--- NOTE | 2024-11-25 08:40 | ECG_ITS ---
Test Date: 2024-11-25 08:38:58 Measurements Intervals [place] Rate: 72 P: 61 MI: 133 QRS: -31 QRSD: 110 T: 36 QT: 392 QTc: 429 Interpretive Statements SINUS RHYTHM LEFT AXIS DEVIATION [QRS AXIS < -30] PATTERN CONSISTENT WITH PULMONARY DISEASE No previous ECG available for comparison Electronically Signed On 11-25-2024 16:48:48 CDT by Inessa Cota
[2024-11-25 08:50] LABS: Hematocrit 37.5 % (37.0-47.0); Hemoglobin 12.0 g/dL (12.0-15.0); Immature Granulocyte Percent A 5.2 % (0-0.5); Lymphocytes Absolute Auto 2.05 K/mm3 (0.9-3.2); Mean Corpuscular HGB Conc 32.0 g/dl (32-36); Mean Corpuscular Hemoglobin 28.2 pg (26-34); Mean Corpuscular Volume 88.0 fl (80-100); Nucleated Red Blood Cells Absolute Auto 0.000 K/mm3 (0.0-0.012); Nucleated Red Blood Cells Perc 0.0 % (0.0-0.2); Platelet Count Result 447 k/mm3 (150-375); Red Blood Count 4.26 M/mm3 (4.2-5.4); White Blood Count 11.5 K/mm3 (4.5-10.0)
[2024-11-25 08:59] LABS: Alanine Aminotransferase 26 U/L (6-35); Albumin Level 3.7 g/dL (3.5-5.1); Alkaline Phosphatase 80 U/L (38-126); Anion Gap 11 mmol/L (4-12); Aspartate Amino Transferase 28 U/L (14-36); Bilirubin,Total 0.4 mg/dL (0.2-1.3); Blood Urea Nitrogen 10 mg/dL (7-17); Calcium 9.0 mg/dL (8.4-10.2); Carbon Dioxide 31 mmol/L (22-30); Chloride 102 mmol/L (98-107); Estimated CRCL calculation 57 ml/min; Estimated Glomerular Filt Rate > 60; Glucose 99 mg/dL (65-110); Potassium 3.2 mmol/L (3.4-5.0); Sodium 144 mmol/L (137-145); Total Protein 7.3 g/dL (6.3-8.2)
[2024-11-25 09:10] LABS: Schistocytes None Seen
[2024-11-25 09:18] LABS: INR 1.0; Partial Thromboplastin Time 30.8 Seconds (22.3-36.8); Prothrombin Time 13.7 Seconds (11.1-14.7)
[2024-11-25 09:21] LABS: NT Pro B Type Natriuretic Pept 1140 pg/mL (19.9-100); Troponin I < 0.012 ng/mL (0.000-0.034)
--- OUTSIDE RECORDS SUMMARY | 2024-11-25 09:23 | XMS_ITS | Clinical Summary ---
Author Organization [facility] al Address [address] [place] [address] Care Team Providers Care Senior Group Manager Name Role Phone Gonzalo Crenshaw DO Primary Care Provider [phone] Allergies Active Allergy Reactions Criticality Noted Date Comments Sulfa (Sulfonamide Antibiotics) Stomach upset Low Medications Ca-D3-mag dj-jzff-zmh-racheal -bor 600 mg calcium- 20 mcg-50 mg [...] and advised to contact her PCP or software designer Advised topical HC for itching as well [...] Description 10/04/2024 3:20 PM CDT Office Visit [facility] Endocrinology Metabolism and Lipid [address] [facility] Floor 1, [address] [place] [address] John Weaver MD Post-surgical hypothyroidism (Primary Dx); Papillary thyroid carcinoma (HCC) 09/21/2024 Telephone [facility] Endocrinology Metabolism and Lipid [address] [facility] 5th [place] [address] [place] [address] Aracelis Mckeon RN from Last 3 Months Immunizations Immunization Administration Dates Next Due Influenza, Quadrivalent, Carol l Culture-based MDCK, Preservative Free, Antibiotic Free, Intramuscular 06/07/2022,03/06/2017 Influenza, Quadrivalent, Hig h Dose, Preservative Free, Intrr 04/06/2020 Influenza, Trivalent, High D ose, Split, Preservative Free, Intramuscular 04/01/2019 Influenza, Unspecified 06/02/2014,06/28/2013 Pneumococcal Conjugate PCV 13 04/06/2020, 019 Tdap 07/07/2019 Surgical History Surgery Date Site/Laterality Comments [place] DELIVERY ONLY Section - (Added by TW Conv) THYROIDECTOMY, PARTIAL Near-Total Thyroidectomy - (Added by TW Conv) MASTECTOMY Breast Surgery Mastectomy - (Added by TW Conv) [place] COLONOSCOPY FLX DX W/DAINA J SPEC WHEN [...] Canc er - (Added by TW Conv) 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 The presence of measurable thyroglobulin indicates the presence of thyroglobulin-producing thyroid tissue. Clinical correlation is advised. This Thyroglobulin test was performed using the Nayeli Mahomet Chemiluminescent method. Values obtained from different assay methods cannot be used interchangeably. Thyroglobulin levels, regardless of value, should not be interpreted as absolute evidence of the presence or absence of disease. 09/24/2024 9:24 AM CDT 09/24/2024 9:25 AM CDT Narrative [facility] - 09/29/2024 3:16 PM CDT FASTING:YES FASTING: YES John Weaver MD LAB BLOOD ORDERABLES Final Resu lt Performing Organization Address [facility] Co de Phone Number [facility], [address] [place] [address] * Thyroid Cancer (Thyroglobulin) Monitor (09/24/2024 9:24 AM CDT) Pathologist [facility] Thyroglobulin ab <1 < OR = 1 IU/mL [facility], Comment: This Thyroglobulin antibody test was performed using the [employer] Chemiluminescent method. Values obtained from different assay [...] ORDERABLES Final Resu lt Performing Organization Address [facility] de Phone Number [facility], [address] [place] [address] * TSH (09/24/2024 9:24 AM CDT) [facility] TSH 0.64 0.40 - 4.50 mIU/L [facility] Blood 09/24/2024 9:24 AM CDT 09/24/2024 9:25 AM CDT Narrative [facility] - 09/29/2024 3:16 PM CDT FASTING:YES FASTING: YES us John Weaver MD LAB BLOOD ORDERABLES Final Resu lt Performing Organization Address City/[facility]/ZIP Co de Phone Number [facility] [address] [phone] * T4, free (09/24/2024 9:24 AM CDT) Free T4 1.5 0.8 - 1.8 ng/dL [facility] Blood 09/24/2024 9:24 AM CDT 09/24/2024 9:25 AM CDT Narrative [facility] - 09/29/2024 3:16 PM CDT FASTING:YES FASTING: YES John Weaver MD LAB BLOOD ORDERABLES Final Resu lt PEGGY [facility] [address] [address] * Screening Mammogram Right W Eladio Unilateral [...] prior imaging studies performed at [facility] on 07/04/2021, 07/31/2022 and [...] prior imaging studies performed at [facility] on 07/04/2021, 07/31/2022 and [...] Most Recently Relevant to Health Maintenance Insurance [employer] [place] MEDIC[place] [employer] [place] [facility] MEDICARE [facility] MEDICARE Care Teams Senior Group Manager Relationship Specialty Start Date End Date Gonzalo Crenshaw DO [address] [address] PCP - General Internal Medicine 08/09/24
--- OUTSIDE RECORDS SUMMARY | 2024-11-25 09:24 | XMS_ITS | Referral Summary ---
Author Organization [facility] al Address [address] [place] [address] Care Team Providers Care Distilling Department Supervisor Name Role Phone Gonzalo Crenshaw DO Primary Care Provider Encounters Date Type Department Care Team Description 10/04/2024 3:20 PM CDT Office Visit [facility] Endocrinology Metabolism and Lipid [address] [facility] Floor 1, [address] [place] [address] John Weaver MD Post-surgical hypothyroidism (Primary Dx); Papillary thyroid carcinoma (HCC) 09/21/2024 Telephone [facility] Endocrinology Metabolism and Lipid [address] [facility] 5th [place] [address] [place] [address] Aracelis Mckeon RN from Last 3 Months Allergies Active Allergy Reactions Criticality Noted Date Comments Sulfa (Sulfonamide Antibiotics) Stomach upset Low Medications Ca-D3-mag jj-nwvs-foi-racheal -bor 600 mg calcium- 20 mcg-50 mg [...] and advised to contact her PCP or white sidewall tire buffer Advised topical HC for itching as well [...] on file 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 The presence of measurable thyroglobulin indicates the presence of thyroglobulin-producing thyroid tissue. Clinical correlation is advised. This Thyroglobulin test was performed using the Nayeli [place] Chemiluminescent method. Values obtained from different assay methods cannot be used interchangeably. Thyroglobulin levels, regardless of value, should not be interpreted as absolute evidence of the presence or absence of disease. 09/24/2024 9:24 AM CDT 09/24/2024 9:25 AM CDT Narrative [facility] - 09/29/2024 3:16 PM CDT FASTING:YES FASTING: YES John Weaver MD LAB BLOOD ORDERABLES Final Resu lt [facility], [address] [place] [address] * Thyroid Cancer (Thyroglobulin) Monitor (09/24/2024 9:24 AM CDT) Thyroglobulin ab <1 < OR = 1 IU/mL [facility], Comment: This Thyroglobulin antibody test was performed using the Nayeli [place] Chemiluminescent method. Values obtained from different assay methods cannot be used interchangeably. Thyroglobulin antibody levels, regardless of value, should not be interpreted as absolute evidence of the presence or absence of disease. Blood 09/24/2024 9:24 AM CDT 09/24/2024 9:25 AM CDT Narrative [facility] - 09/29/2024 3:16 PM CDT FASTING:YES FASTING: YES John Weaver MD LAB BLOOD ORDERABLES Final Resu lt Performing Organization Address [facility]/ZIP Co de Phone Number [facility], [address] [place] [address] * TSH (09/24/2024 9:24 AM CDT) TSH 0.64 0.40 - 4.50 mIU/L [facility] Blood 09/24/2024 9:24 AM CDT 09/24/2024 9:25 AM CDT Narrative [facility] - 09/29/2024 3:16 PM CDT FASTING:YES FASTING: YES us John Weaver MD LAB BLOOD ORDERABLES Final Resu lt [facility] [address] [place] [address] * T4, free (09/24/2024 9:24 AM CDT) Free T4 1.5 0.8 - 1.8 ng/dL [facility] Blood 09/24/2024 9:24 AM CDT 09/24/2024 9:25 AM CDT Narrative [facility] - 09/29/2024 3:16 PM CDT FASTING:YES FASTING: YES John Weaver MD LAB BLOOD ORDERABLES Final Resu lt [facility] [address] [place] [address] * Screening Mammogram Right W Eladio Unilateral [...] to prior imaging studies performed at [facility] on 07/04/2021, 07/31/2022 and 08/06/2023. [...] to prior imaging studies performed at [facility] on 07/04/2021, 07/31/2022 and 08/06/2023. [...] Most Recently Relevant to [place] [id number] MEDICARE [employer] [place] [facility] MEDICARE [facility] MEDICARE Care Teams Distilling Department Supervisor Relationship Specialty Start Date End Date Gonzalo Crenshaw DO [address] [facility] [place] [address] PCP - General Internal Medicine 08/09/24
--- OUTSIDE RECORDS SUMMARY | 2024-11-25 09:24 | XMS_ITS | Encounter Summary ---
Author Organization [facility] Address [address] [place] [address] Phone Care Team Providers Care Sports Umpire Name Role Phone Lavon Smith MD Primary Care Provider [phone] Gonzalo Crenshaw DO Primary Care Provider Shar Ricketts MD Primary Care Provider [phone] Gonzalo Crenshaw DO Primary Care Provider [phone] Encounter Details Date Type Department Care Team (Latest Contact Info) Description 09/07/2015 Orders Only [facility] Scanning, Provider Social History Tobacco Use Types Packs/Day Years Used Date Smoking Tobacco: Never Assessed Comments Unknown Sex and Gender Information Value Date Recorded Sex Assigned at Not on file 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 Gender Identity Not on file Sexual Orientation [...] on filedocumented in this encounter Care Teams Sports Umpire Relationship Specialty Start Date End Date Lavon Smith MD [address] [facility] [place], [place] [id number] PCP - General 10/15/16 06/22/19 Gonzalo Crenshaw DO [address] [place] [address] PCP - General Internal Medicine 06/23/19 08/05/22 Shar Ricketts MD [address] [place] [address] PCP - General Internal Medicine 08/06/22 08/08/24 Gonzalo Crenshaw DO [address] [place] [address] PCP - General Internal Medicine 08/09/24 documented as of this encounter
--- NOTE | 2024-11-25 09:33 | ED_ITS ---
HPI - SOB/Dyspnea General Chief Complaint: Shortness of Breath/Dyspnea Stated Complaint: sob, r/o pe? Time Seen by Provider: 11/25/24 08:56 Source: patient Mode of arrival: ambulatory Limitations: no limitations History of Present Illness HPI Narrative: Patient is a 73 y/o female who presents to the ED with c/o shortness of breath. Patient reports she recently traveled to and from [place] for vacation. She underwent emergency appendectomy while there and was hospitalized for a short period. She returned home on Friday. She has been feeling increasingly short of breath since then, worse with exertion. Had a follow-up appointment with her PCP yesterday, had pleural effusion on chest x-ray as well as a positive D-dimer. Was referred to the ED for further evaluation. Patient denies previous history of blood clots. She has had mild cough and slight swelling throughout her lower extremities. Denies chest pain. Denies fevers. Denies dizziness, lightheadedness. Related Data Home Medications ?Medication ?Instructions ?Recorded ?Confirmed ?Last Taken ?Type calcium carbonate (Calcium 500) 500 mg PO DAILY 10/12/19 11/24/24 10/19/19 History omega 3-cwh-smz-fish oil 1,000 mg 1 cap PO DAILY 10/12/19 11/24/24 10/19/19 History (120 mg-180 mg) capsule (Fish Oil) levothyroxine 125 mcg tablet 100 mcg PO DAILY 02/26/23 11/24/24 Unknown History Allergies Allergy/AdvReac Type Severity Reaction Status Date / Time clarithromycin Allergy Unknown Gastrointestinal Verified 11/25/24 08:36 Upset Sulfa (Sulfonamide Allergy Unknown Gastrointestinal Verified 11/25/24 08:36 Antibiotics) Upset Review of Systems 2 Review of Systems: All systems reviewed & are unremarkable except as noted in HPI. All systems reviewed & are unremarkable except as noted in HPI and below PMFSH Past Medical History Medical History BMI 33.0-33.9,adult Other and unspecified hyperlipidemia Prediabetes BMI 34.0-34.9,adult Chronic GERD Essential (primary) hypertension Adult hypothyroidism Primary malignant neoplasm of breast Surgical History Surgical History S/P appendectomy Family History Family History Father Hypertension Family history of coronary artery disease Family history of heart disease in male family member before age 55 Family history of diabetes mellitus in first degree relative Sibling Carcinoma of colon Grandparent Family history of coronary artery disease Carcinoma of colon Mother Other Cerebrovascular accident Diabetes mellitus Family history of cardiovascular disease Family history of gout Family history of malignant neoplasm Family history of malignant neoplasm of male breast Social History Social History Smoking status: Never smoker Second hand tobacco smoke exposure: No Alcohol intake: current Drinks per week: 1 Alcohol use details: mix drink Substance use: never Substance use type: does not use Do You Feel Safe in your Home?: Yes Lack of Transportation: No Lack of Food: Never True Current Housing: I Have Housing Concerned About Future Housing: No Difficulty Paying Gas/Electric Bills: No Difficulty Paying for Meds: No Currently Unemployed: No Education: High School Diploma/GED Difficulty w/ Childcare or Family Care: No Living arrangements: with family Occupation/Education: occupation 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 HEAD: Normocephalic, atraumatic. RESPIRATORY: Airway patent, respirations nonlabored. Clear to auscultation bilaterally, no rales, rhonchi, wheezing. No significant focal lung sounds. CARDIOVASCULAR: Regular rate and rhythm without murmurs, rubs, or gallops. MUSCULOSKELETAL: Moves all extremities. No gross deformities. Trace pitting edema bilateral lower extremities. No calf tenderness. SKIN: Warm, dry, normal color. NEURO: A&O X3. Speech clear. Cranial nerves II-XII grossly intact. Steady gait. No ataxic movements. PSYCHIATRIC: Appropriate mood and affect. Normal interaction. Course Vital Signs Vital signs: Vital Signs Pulse Rate 75 11/25/24 08:33 Respiratory Rate 17 11/25/24 08:33 Pulse Oximetry 98 11/25/24 08:33 Oxygen Delivery Room Air 11/25/24 08:33 Temperature 97.7 F 11/25/24 08:37 Pulse Rate 67 11/25/24 10:47 Respiratory Rate 14 11/25/24 10:47 Blood Pressure 156/83 H 11/25/24 10:47 Pulse Oximetry 98 11/25/24 10:47 Oxygen Delivery Room Air 11/25/24 08:35 MDM - SOB/Dyspnea MDM Narrative Medical decision making narrative: Patient presented to ED with shortness of breath, recent travel/surgery, positive D-dimer on outpatient labs. Vital signs are stable upon arrival. Oxygen stable on room air. EKG with left axis, no significant concerning ischemic changes. Troponin undetectable. Cbc with blood cell count of 11.5. H&H is stable. Potassium is 3.2, replaced orally. Creatinine stable. BNP 1140. Patient has trace pitting edema on BLE, but otherwise does not appear significantly fluid overloaded. No previous history of CHF. Venous Doppler ultrasound of bilateral lower extremities was obtained and negative. CTA of chest was obtained and no evidence of PE. Does show small bilateral pleural effusions with compressive atelectasis, small amount of perihepatic ascites. Discussed lab and imaging findings with patient and family, potential for new onset but mild CHF. Patient has remained stable throughout ED stay. She has not been hypoxic. Was ambulated throughout the ED w/o ambulatory hypoxia. Feel she would be safe for outpatient follow-up. Discussed case with Dr. Crenshaw, PCP, agrees with plan for outpatient follow-up. Will place order for echocardiogram and have close follow-up with patient. Patient is in agreement with plan. She feels comfortable going home. Would prefer to go home. Discussed very strict return precautions. She voiced understanding. Discharged in stable condition. Medical Records Attestation: I reviewed the patient's medical records. Lab Data Attestation: I reviewed the patient's lab results. 11/25/24 08:43 11/25/24 08:43 Labs: Lab Results 11/25/24 11/25/24 Range/Units 08:42 08:43 WBC 11.5 H (4.5-10.0) K/mm3 RBC 4.26 (4.2-5.4) M/mm3 Hgb 12.0 (12.0-15.0) g/dL Hct 37.5 (37.0-47.0) % MCV 88.0 (80-100) fl MCH 28.2 (26-34) pg MCHC 32.0 (32-36) g/dl RDW 15.4 H (11.5-14.5) % Plt Count 447 H (150-375) k/mm3 MPV 9.3 (7.4-10.4) fl Immature Gran % (Auto) 5.2 H (0-0.5) % Neut % (Auto) 65.0 (45.5-73.1) % Lymph % (Auto) 17.9 L (18.3-44.2) % Jerome % (Auto) 7.9 (2.6-8.5) % Eos % (Auto) 3.3 (0-4.4) % Baso % (Auto) 0.7 (0.2-1.2) % Lymph # (Auto) 2.05 (0.9-3.2) K/mm3 Jerome # (Auto) 0.9 H (0.1-0.6) K/mm3 Eos # (Auto) 0.4 H (0-0.3) K/mm3 Baso # (Auto) 0.1 (0.0-0.1) K/mm3 Abs Immat Gran (auto) 0.60 H (0.00-0.031) K/mm3 Absolute Neuts (auto) 7.4 H (1.3-6.7) K/mm3 Absolute Nucleated RBC 0.000 (0.0-0.012) K/mm3 Band Neutrophils % Not Reportable Nucleated RBC % 0.0 (0.0-0.2) % Atypical Lymphocytes Present Platelet Estimate Adequate (Adequate) Schistocytes None seen PT 13.7 (11.1-14.7) Seconds INR 1.0 APTT 30.8 (22.3-36.8) Seconds Sodium 144 (137-145) mmol/L Potassium 3.2 L (3.4-5.0) mmol/L Chloride 102 (98-107) mmol/L Carbon Dioxide 31 H (22-30) mmol/L Anion Gap 11 (4-12) mmol/L BUN 10 (7-17) mg/dL Creatinine 0.89 (0.7-1.0) mg/dL Estim Creat Clear Calc 57 ml/min Estimated GFR > 60 (59 - ) Glucose 99 (65-110) mg/dL Calcium 9.0 (8.4-10.2) mg/dL Magnesium 1.9 (1.6-2.3) mg/dL Total Bilirubin 0.4 (0.2-1.3) mg/dL AST 28 (14-36) U/L ALT 26 (6-35) U/L Alkaline Phosphatase 80 (38-126) U/L Troponin I < 0.012 (0.000-0.034) ng/mL NT-Pro-B Natriuret Pep 1140 H (19.9-100) pg/mL Total Protein 7.3 (6.3-8.2) g/dL Albumin 3.7 (3.5-5.1) g/dL Imaging Data Attestation: I personally reviewed and interpreted this imaging study as follows: Radiologist's impression: ITS Impressions Chest CTA 11/25/24 10:35 IMPRESSION: 1. No pulmonary embolism. 2. Small bilateral pleural effusions with dependent compressive atelectasis in bilateral lower lobes. 3. Small amount of perihepatic ascites. 4. Small sliding-type hiatal hernia. Venous Doppler Study 11/25/24 10:45 IMPRESSION: 1. No deep venous thrombosis. ECG Data EKG #1: Attestation: I personally reviewed and interpreted this ECG as follows: ECG completion date: 11/25/24 ECG completion time: 08:38 EKG Interpretation: normal rate (72), sinus rhythm, no ST changes and left axis Discharge Plan Discharge Clinical Impression: Shortness of breath, Elevated brain natriuretic peptide (BNP) level Patient Disposition: Home Condition: Stable Instructions: Antibiotic Form, Heart Failure (ED), Dyspnea (ED), Shortness of Breath (ED) Additional Instructions: Your BNP was slightly elevated here which could be an indication for congestive heart failure. You will need to follow-up with your primary care doctor and receive outpatient echocardiogram of your heart. Your primary care doctor is aware of your ED visit. Return to the ED if you experience worsening or severe shortness of breath, chest pain, significant swelling in your lower extremities, unable to keep down food or drink, persistent fevers, or any other symptoms of concern. Patient Language: Lithuanian Prescriptions: No Action valsartan-hydrochlorothiazide 320-25 mg tablet 1 tablet PO DAILY Qty: 90 3RF levofloxacin 750 mg tablet 750 mg PO DAILY 7 Days Qty: 7 0RF levothyroxine 125 mcg tablet 100 mcg PO DAILY buspirone 15 mg tablet 15 mg PO BID PRN (Reason: anxiety) Qty: 30 1RF loratadine [Claritin] 10 mg tablet 10 mg PO DAILY PRN (Reason: allergic symptoms) Qty: 30 0RF calcium carbonate [Calcium 500] 500 mg calcium (1,250 mg) Tablet 500 mg PO DAILY omega 8-krs-gor-fish oil [Fish Oil] 1,000 mg (120 mg-180 mg) Capsule 1 cap PO DAILY pantoprazole 40 mg tablet,delayed release (DR/EC) 40 mg PO BID Qty: 180 1RF pravastatin 20 mg tablet 20 mg PO DAILY Qty: 90 1RF Follow-up/Referrals: Terrell Edgar APRN [Primary Care Provider] - Time of Disposition: 11:54
[2024-11-25 10:23] LABS: Magnesium 1.9 mg/dL (1.6-2.3)
[2024-11-25] MEDS: POTASSIUM CHLORIDE 20 MEQ ER TABLET 40 MEQ PO (10:31)
== END 2024-11-25 12:05 | disposition home or self-care (01) ==
PROVIDERS: Emergency Medicine; Emergency Provider Physician Assistant; PCP Nurse Practitioner
DX: R06.02 Shortness of breath (principal); R79.89 Other specified abnormal findings of blood chemistry; E03.9 Hypothyroidism, unspecified; I10 Essential (primary) hypertension
CPT/HCPCS: 36415; 71275; 80053; 83735; 83880; 84484; 85025; 85610; 85730; 93005; 93970; 99284; A9270; Q9967

== ENCOUNTER 2024-12-18 11:31 | Inpatient (IN) | payer BC, MEDICARE, SELFPAY ==
[2024-12-18] VITALS (28 sets, daily range): BP systolic 83–132; BP diastolic 38–79; PULSE 78–91; RESP 16–19; TEMP 36.8–37.2; O2SAT 93–99; BMI 30.1; BMI 29.5
--- NOTE | ~2024-12-18 | XR_ITS ---
CHEST RADIOGRAPH CLINICAL HISTORY: weakness . COMPARISON: 11/24/2024 TECHNIQUE: Single portable view of the chest. FINDINGS The cardiomediastinal silhouette is unremarkable. Redemonstration of multiple calcified nodules within the right hemithorax, unchanged from prior exami nation. Blunting of the bilateral costophrenic sulci suggesting small bilateral pleural effusions. The remainder of the lungs are clear. IMPRESSION: Small bilateral pleural effusions without focal infiltrate. Reviewed, dictated and finalized at location A.
--- NOTE | ~2024-12-18 | CT_ITS ---
CLINICAL INDICATION: Diarrhea and leukocytosis. Personal history of breast cancer post appendectomy a pproximately 3-4 weeks earlier COMPARISON: None. Reference is made to CT examinations of the chest performed most recently on 11/26/19 and dating back to 04/18/2017 TECHNIQUE: Multiple contiguous axial images of the abdomen and pelvis were performed following the ad ministration of with 100 mL Omnipaque-350 intravenous contrast The dose-length product (DLP) was 524.25 mGy-cm. Automated exposure control and iterative reconstruction technique were employed. FINDINGS/OBSERVATIONS: Visualized lower thorax: The bilateral lung bases are clear. The heart is of normal size, with a small pericardial effusion. Small hiatal hernia is present. Left breast prosthetic is present. Right anterior chest wall breast tissue is intact. Liver: The liver demonstrates heterogeneous enhancement and is borderline enlarged measuring 19 cm in longit udinal dimension. Multiple scattered foci of decreased attenuation within the liver, the largest within segment 6 measu ring 21 mm in greatest dimension, with centripetal enhancement, likely representing a hemangioma. This focus was not included on the CTA of the chest dated 04/18/2017. However, multiple subcentimeter foci of decreased attenuation are unchanged from 2017 and likely repr esent small cysts. Gallbladder and biliary system: The gallbladder is only minimally distended, and otherwise unremarkable. Pancreas: The pancreas enhances homogeneously without ductal dilatation. Spleen: A 16 mm rounded focus of decreased attenuation is identified within the spleen, unable to ful ly characterize on the current examination. End not included on the 2017 examination. The remainder of the spleen otherwise enhances homogeneously and is not enlarged. Kidneys: 2 mm nonobstructing calculus within the lower pole of the right kidney. The remainder of the bilateral kidneys otherwise enhance symmetrically without hydronephrosis or mary l calculi. Adrenal glands: Unremarkable. Gastrointestinal tract: Thickening within the cecum and ascending colon with hyperemia and surrounding inflammatory change. Staple line is identified consistent with previous surgery. Multiple nondilated loops of fluid-filled small bowel appear tethered to the right lower quadrant, wi th infiltration of the adjacent mesentery, likely from recent surgical intervention. Right-sided diverticulum is present (axial series, image 101), without perforation or surrounding inf lammatory change. Appendix: Surgically absent. Vasculature: Unremarkable. Lymph nodes: No pathologically enlarged or morphologically suspicious lymph nodes within the retroperitoneum or at the root of the mesentery. Pelvic structures: The bladder is decompressed, limiting its evaluation. The uterus is likely surgically absent or markedly atrophic Body wall and musculoskeletal: Small fat-containing umbilical hernia. No significant degenerative disease within the lower thoracic or lumbosacral spine. IMPRESSION: Right-sided diverticulosis. Postoperative change. Nonobstructing calcification within the right kidney. Findings within the liver which most likely represent benign cysts. Given patient's history (of breast cancer), further evaluation (nonemergently) with contrast-enhanced cross-sectional imaging of the abdomen (CT or MRI) with liver mass protocol is recommended. Reviewed, dictated and finalized at location A.
--- OUTSIDE RECORDS SUMMARY | 2024-12-18 11:33 | XMS_ITS | Clinical Summary ---
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 Advised topical HC for itching as well [...] 10/04/2024 3:20 PM CDT Office Visit [facility] Endocrinology Metabolism and Lipid [address] [facility] Floor [address], [address] [place] [address] John Weaver MD Post-surgical hypothyroidism (Primary Dx); Papillary thyroid carcinoma (HCC) 09/21/2024 Telephone [facility] Endocrinology Metabolism and Lipid [address] [facility] 5th [place] [address] [place] [address] Aracelis Mckeon RN from Last 3 Months Immunizations Immunization Administration Dates Next Due Influenza, Quadrivalent, Carol l Culture-based MDCK, Preservative Free, Antibiotic Free, Intramuscular 06/07/2022,03/06/2017 Influenza, Quadrivalent, Hig h Dose, Preservative Free, Intrr 04/06/2020 Influenza, Trivalent, High D ose, Split, Preservative Free, Intramuscular 04/01/2019 Influenza, Unspecified 06/02/2014,06/28/2013 Pneumococcal Conjugate PCV 13 04/06/2020, 019 Tdap 07/07/2019 Surgical History Surgery Date Site/Laterality Comments [place] DELIVERY ONLY Section - (Added by TW Conv) THYROIDECTOMY, PARTIAL Near-Total Thyroidectomy - (Added by TW Conv) MASTECTOMY Breast Surgery Mastectomy - (Added by TW Conv) [place] COLONOSCOPY FLX DX W/DAINA J SPEC WHEN [...] Canc er - (Added by TW Conv) ICE CARVER malignancy Niece Colon cancer Sister Alive at [...] on file 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 The presence of measurable thyroglobulin indicates the presence of thyroglobulin-producing thyroid tissue. Clinical correlation is advised. This Thyroglobulin test was performed using the Nayeli Jadon Chemiluminescent method. Values obtained from different assay methods cannot be used interchangeably. Thyroglobulin levels, regardless of value, should not be interpreted as absolute evidence of the presence or absence of disease. 09/24/2024 9:24 AM CDT 09/24/2024 9:25 AM CDT Narrative [facility] - 09/29/2024 3:16 PM CDT FASTING:YES FASTING: YES John Weaver MD LAB BLOOD ORDERABLES Final Resu lt Performing Organization Address [facility] Co de Phone Number [email or web address], [address] [place] [address] * Thyroid Cancer (Thyroglobulin) Monitor (09/24/2024 9:24 AM CDT) Pathologist [facility] [place] Thyroglobulin ab <1 < OR = 1 IU/mL [facility], Comment: This Thyroglobulin antibody test was performed using the AIFOTEC Chemiluminescent method. Values obtained from different assay [...] ORDERABLES Final Resu lt Performing Organization Address [facility] de Phone Number [email or web address], [address] [place] [address] * TSH (09/24/2024 9:24 AM CDT) [facility] TSH 0.64 0.40 - 4.50 mIU/L [facility] Blood 09/24/2024 9:24 AM CDT 09/24/2024 9:25 AM CDT Narrative [facility] - 09/29/2024 3:16 PM CDT FASTING:YES FASTING: YES us John Weaver MD LAB BLOOD ORDERABLES Final Resu lt Performing Organization Address City/[facility]/ZIP Co de Phone Number [email or web address] [address] [place] [address] * T4, free (09/24/2024 9:24 AM CDT) Free T4 1.5 0.8 - 1.8 ng/dL [facility] Blood 09/24/2024 9:24 AM CDT 09/24/2024 9:25 AM CDT Narrative [facility] - 09/29/2024 3:16 PM CDT FASTING:YES FASTING: YES John Weaver MD LAB BLOOD ORDERABLES Final Resu lt PEGGY [facility] [address] [place] [address] * Screening Mammogram Right W Eladio Unilateral Only (08/20/2024 10:36 AM CDT) Anatomical Region Laterality Modality Breast Right Mammography Narrative 08/23/2024 10:51 AM CDT Mammogram Technique: Right Breast Digital Breast Tomosynthesis, Unilateral C-view 2D Screening mammogram. Views obtained: right craniocaudal and right mediolateral oblique. Computer Aided Detection was performed. Mammogram Findings: The present examination has been compared to prior imaging studies performed at [facility] on 07/04/2021, 07/31/2022 and 08/06/2023. There [...] compared to prior imaging studies performed at [facility] on 07/04/2021, 07/31/2022 and 08/06/2023. There [...] Most Recently Relevant to Health Maintenance Insurance Factual [facility] MEDICARE [facility] MEDICARE [facility] MEDICARE Care Teams Silk Screen Etcher Relationship Specialty Start Date End Date Gonzalo Crenshaw DO [address] [address] PCP - General Internal Medicine 08/09/24
--- OUTSIDE RECORDS SUMMARY | 2024-12-18 11:33 | XMS_ITS | Encounter Summary ---
Author Organization [facility] Address [address] [place] [address] Phone Care Team Providers Care Pit Crane Operator Name Role Phone Lavon Smith MD Primary Care Provider [phone] Gonzalo Crenshaw DO Primary Care Provider [phone] Shar Ricketts MD Primary Care Provider [phone] Gonzalo Crenshaw DO Primary Care Provider [phone] Encounter Details Date Type Department Care Team (Latest Contact Info) Description 09/07/2015 Orders Only [facility] Scanning, Provider Social History Tobacco Use Types Packs/Day Years Used Date Smoking Tobacco: Never Assessed Comments Unknown Sex and Gender Information Value Date Recorded Sex Assigned at Not on file 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 Gender Identity Not on file Sexual [...] on filedocumented in this encounter Care Teams Pit Crane Operator Relationship Specialty Start Date End Date Lavon Smith MD [address] INTERNAL MEDICINE [place], [place] [id number] PCP - General 10/15/16 06/22/19 Gonzalo Crenshaw DO [address] [place] [address] PCP - General Internal Medicine 06/23/19 08/05/22 Shar Ricketts MD [address] [place] [address] PCP - General Internal Medicine 08/06/22 08/08/24 Gonzalo Crenshaw DO [address] [place] [address] PCP - General Internal Medicine 08/09/24 documented as of this encounter
--- OUTSIDE RECORDS SUMMARY | 2024-12-18 11:33 | XMS_ITS | Referral Summary ---
Author Organization [facility] al Address [address] [place] [address] Care Team Providers Care Manager Market Name Role Phone Gonzalo Crenshaw DO Primary Care Provider [phone] Encounters Date Type Department Care Team Description 10/04/2024 3:20 PM CDT Office Visit [facility] Endocrinology Metabolism and Lipid [address] [facility] Floor 1, [address] [place] [address] John Weaver MD Post-surgical hypothyroidism (Primary Dx); Papillary thyroid carcinoma (HCC) 09/21/2024 Telephone [facility] Endocrinology Metabolism and Lipid [address] 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 Values obtained from different assay methods cannot be used interchangeably. Thyroglobulin antibody levels, regardless of value, should not be interpreted as absolute evidence of the presence or absence of disease. Blood 09/24/2024 9:24 AM CDT 09/24/2024 9:25 AM CDT Narrative [facility] - 09/29/2024 3:16 PM CDT FASTING:YES FASTING: YES John Weaver MD LAB BLOOD ORDERABLES Final Resu lt Performing Organization Address [facility]/ZIP Co de Phone Number [facility], [address] [place] [address] * TSH (09/24/2024 9:24 AM CDT) TSH 0.64 0.40 - 4.50 mIU/L [facility] [facility] Blood 09/24/2024 9:24 AM CDT 09/24/2024 9:25 AM CDT Narrative [facility] - 09/29/2024 3:16 PM CDT FASTING:YES FASTING: YES us John Weaver MD LAB BLOOD ORDERABLES Final Resu lt [facility] [address] [place] [address] * T4, free (09/24/2024 9:24 AM CDT) Free T4 1.5 0.8 - 1.8 ng/dL [facility] Blood 09/24/2024 9:24 AM CDT 09/24/2024 9:25 AM CDT Narrative [facility] - 09/29/2024 3:16 PM CDT FASTING:YES FASTING: YES John Weaver MD LAB BLOOD ORDERABLES Final Resu lt [facility] [address] [place] [address] * Screening Mammogram Right W Eladio Unilateral [...] Most Recently Relevant [id number] [place]ICARE [place] [facility] ACCESS MEDICARE [facility] MEDIC[facility] Care Teams Manager Market Relationship Specialty Start Date End Date Gonzalo Crenshaw DO [address] [facility] [place] [address] PCP - General Internal Medicine 08/09/24
--- NOTE | 2024-12-18 11:44 | ECG_ITS ---
Test Date: 2024-12-18 11:55:34 Measurements Intervals [place] Rate: 85 P: 48 AR: 134 QRS: -20 QRSD: 105 T: 80 QT: 335 QTc: 400 Interpretive Statements SINUS RHYTHM Compared to ECG 11/25/2024 08:38:58 Left-axis deviation no longer present Electronically Signed On 12-19-2024 14:08:24 CDT by Jayesh Zhang M.D.
--- NOTE | 2024-12-18 11:45 | ED.NAVMDI ---
HPI - Nausea/Vomiting/Diarrhea General Chief complaint: Nausea/Vomiting/Diarrhea Stated complaint: dehydration Time Seen by Provider: 12/18/24 11:37 Source: patient, RN notes reviewed and old records reviewed Mode of arrival: ambulatory Limitations: no limitations History of Present Illness HPI Narrative: THis is a 74 year old female who presents for evaluation of weakness and diarrhea. She states 1 month ago she had an appendectomy while she was out of town. She states since her surgery she has been having diarrhea. Her PCP put her on antibiotics 3 weeks ago but she has continued to have diarrhea. She states she is feeling weak and she is sleeping all the time. She has mild stomache ache since her procedure. She thinks she is dehydrated because she reports bilateral calf tightness and pain. She also states she was told she could have CHF. She was evaluated 3 weeks ago she was evaluated for shortness of breath Related Data Home Medications ?Medication ?Instructions ?Recorded ?Confirmed ?Last Taken ?Type calcium carbonate (Calcium 500) 1,200 mg PO DAILY 10/12/19 12/18/24 12/17/24 History omega 7-esg-cvf-fish oil 1,000 mg 1 cap PO DAILY 10/12/19 12/18/24 12/17/24 History (120 mg-180 mg) capsule (Fish Oil) levothyroxine 100 mcg tablet 100 mcg PO DAILY 12/18/24 12/18/24 12/18/24 History (Levoxyl) Allergies Allergy/AdvReac Type Severity Reaction Status Date / Time clarithromycin Allergy Unknown Gastrointestinal Verified 12/18/24 18:09 Upset Sulfa (Sulfonamide Allergy Unknown Gastrointestinal Verified 12/18/24 18:09 Antibiotics) Upset Review of Systems Constitutional: Constitutional: Reports fatigue, Reports fever(s) (3 days ago reports temperature 100 F) and Reports weakness Cardiovascular: Cardiovascular: Denies chest pain Respiratory: Respiratory: Denies chest congestion, Denies cough and Denies dyspnea Gastrointestinal: Gastrointestinal: Reports abdominal pain, Reports diarrhea, Denies nausea and Denies vomiting PMFSH Past Medical History Medical History BMI 33.0-33.9,adult Other and unspecified hyperlipidemia Prediabetes BMI 34.0-34.9,adult Chronic GERD Essential (primary) hypertension Adult hypothyroidism Primary malignant neoplasm of breast Surgical History Surgical History S/P appendectomy Family History Family History Father Hypertension Family history of coronary artery disease Family history of heart disease in male family member before age 55 Family history of diabetes mellitus in first degree relative Sibling Carcinoma of colon Grandparent Family history of coronary artery disease Carcinoma of colon Mother Other Cerebrovascular accident Diabetes mellitus Family history of cardiovascular disease Family history of gout Family history of malignant neoplasm Family history of malignant neoplasm of male breast Social History Social History Smoking status: Never smoker Second hand tobacco smoke exposure: No Alcohol intake: never Drinks per week: 1 Alcohol use details: mix drink Substance use: never Substance use type: does not use Do You Feel Safe in your Home?: Yes Lack of Transportation: No Lack of Food: Never True Current Housing: I Have Housing Concerned About Future Housing: No Difficulty Paying Gas/Electric Bills: No Difficulty Paying for Meds: No Currently Unemployed: No Education: High School Diploma/GED Difficulty w/ Childcare or Family Care: No Living arrangements: with family Occupation/Education: occupation 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 Gender identity (if verbalized by the patient): Female Spiritual care concerns: No Exam Const: General: healthy appearing, no acute distress and alert Nutritional Appearance: well nourished Orientation/consciousness: patient oriented x3 HENMT: Head: normal to inspection Eyes: EOM: EOMs intact bilaterally Resp: Effort & Inspection: normal respiratory effort Auscultation: clear to auscultation bilaterally Cardio: Rate: regular rate Rhythm: regular rhythm Heart sounds: no murmurs GI: GI Palp: Yes Soft to palpation, No Tenderness to palpation present (GI), No Guarding due to palpation present (GI) and No Rigid due to palpation Auscultation: normal bowel sounds Other: 2 healed surgical incision, closed, dry, intact Skin: General skin exam: normal color Rashes: no rashes Neuro: General: patient oriented x3, moves all extremities and CN's II-XI intact bilaterally Extrem: General: normal to inspection Psych: Mental Status: mental status grossly normal Affect: normal affect Attitude: cooperative Course Reevaluation(s) Reevaluation #1: I discussed with patient that she will need to be admitted . She have been found to be dehydration and elevated troponin. Date: 12/18/24 Time: 14:00 Consultations Consultation #1: I spoke with Annamaria , hospitalist and she accepts patient to IMU with cardiology consult Date: 12/18/24 Time: 13:24 Consultation #2: I spoke with Dr. Zhang who agrees to consultation. No further recommendations Date: 12/18/24 Time: 14:34 Vital Signs Vital signs: Vital Signs Temperature 98.2 F 12/18/24 11:38 Pulse Rate 85 12/18/24 11:38 Respiratory Rate 18 12/18/24 11:38 Blood Pressure 132/79 12/18/24 11:38 Pulse Oximetry 99 12/18/24 11:38 Temperature 98.5 F 12/18/24 20:00 Pulse Rate 91 12/18/24 20:00 Respiratory Rate 18 12/18/24 20:00 Blood Pressure 117/57 L 12/18/24 20:00 Pulse Oximetry 96 12/18/24 20:00 Oxygen Delivery Room Air 12/18/24 20:00 MDM - Nausea/Vomiting/Diarrhea MDM Narrative Medical decision making narrative: PAtient presents with weakness and 1 month of diarrhea. Labs ordered, EKG, chest xray and CT abdomen and pelvis. Labs show leukocytosis of 17 . She has PILI with elevated Creatinine 1.5 and BUN 26. I ordered IV fluids, blood cultures. Troponin was elevated may be due to leak no ischemic changes on EKG. Aspirin 324 mg PO ordered in ER. CT did not show any definite infectious source. Since wbc is elevated I ordered 1 dose of antibiotics in ER. Cardiology consulted and patient admitted to hospitalist. Differential Diagnosis Differential diagnosis: Likely traveler's diarrhea, gastroenteritis, clostridium difficile infection, dehydration and other (AR, CHF) Medical Records Attestation: I reviewed the patient's medical records. Lab Data Attestation: I reviewed the patient's lab results. 12/18/24 11:56 12/18/24 11:56 Labs: Lab Results 12/18/24 12/18/24 12/18/24 Range/Units 11:56 11:56 11:56 WBC 17.0 H (4.5-10.0) K/mm3 RBC 4.37 (4.2-5.4) M/mm3 Hgb 12.1 (12.0-15.0) g/dL Hct 38.5 (37.0-47.0) % MCV 88.1 (80-100) fl MCH 27.7 (26-34) pg MCHC 31.4 L (32-36) g/dl RDW 14.4 (11.5-14.5) % Plt Count 271 (150-375) k/mm3 MPV 10.9 H (7.4-10.4) fl Immature Gran % (Auto) 0.5 (0-0.5) % Neut % (Auto) 75.0 H (45.5-73.1) % Lymph % (Auto) 12.5 L (18.3-44.2) % Ada % (Auto) 11.0 H (2.6-8.5) % Eos % (Auto) 0.4 (0-4.4) % Baso % (Auto) 0.6 (0.2-1.2) % Lymph # (Auto) 2.12 (0.9-3.2) K/mm3 Ada # (Auto) 1.9 H (0.1-0.6) K/mm3 Eos # (Auto) 0.1 (0-0.3) K/mm3 Baso # (Auto) 0.1 (0.0-0.1) K/mm3 Abs Immat Gran (auto) 0.08 H (0.00-0.031) K/mm3 Absolute Neuts (auto) 12.8 H (1.3-6.7) K/mm3 Absolute Nucleated RBC 0.000 (0.0-0.012) K/mm3 Nucleated RBC % 0.0 (0.0-0.2) % PT 14.6 (11.1-14.7) Seconds INR 1.1 APTT 33.4 (22.3-36.8) Seconds Sodium 135 L (137-145) mmol/L Potassium 3.1 L (3.4-5.0) mmol/L Chloride 96 L (98-107) mmol/L Carbon Dioxide 29 (22-30) mmol/L Anion Gap 10 (4-12) mmol/L BUN 26 H D (7-17) mg/dL Creatinine 1.51 H (0.7-1.0) mg/dL Estim Creat Clear Calc 32 ml/min Estimated GFR 34 L (59 - ) Glucose 119 H (65-110) mg/dL Lactic Acid 1.1 (0.7-2.0) mmol/L Calcium 9.1 (8.4-10.2) mg/dL Magnesium 2.1 Cancelled (1.6-2.3) mg/dL Total Bilirubin 0.8 (0.2-1.3) mg/dL AST 27 (14-36) U/L ALT 15 (6-35) U/L Alkaline Phosphatase 81 (38-126) U/L Troponin I 0.527 H* Cancelled (0.000-0.034) ng/mL NT-Pro-B Natriuret Pep 4500 H (19.9-100) pg/mL Total Protein (6.3-8.2) g/dL Albumin (3.5-5.1) g/dL Triglycerides (<150) mg/dL Cholesterol (0-200) mg/dL LDL Cholesterol Direct mg/dL HDL Direct mg/dL Lipase (23-300) U/L 07/26/25 Range/Units 11:56 WBC (4.5-10.0) K/mm3 RBC (4.2-5.4) M/mm3 Hgb (12.0-15.0) g/dL Hct (37.0-47.0) % MCV (80-100) fl MCH (26-34) pg MCHC (32-36) g/dl RDW (11.5-14.5) % Plt Count (150-375) k/mm3 MPV (7.4-10.4) fl Immature Gran % (Auto) (0-0.5) % Neut % (Auto) (45.5-73.1) % Lymph % (Auto) (18.3-44.2) % Ada % (Auto) (2.6-8.5) % Eos % (Auto) (0-4.4) % Baso % (Auto) (0.2-1.2) % Lymph # (Auto) (0.9-3.2) K/mm3 Ada # (Auto) (0.1-0.6) K/mm3 Eos # (Auto) (0-0.3) K/mm3 Baso # (Auto) (0.0-0.1) K/mm3 Abs Immat Gran (auto) (0.00-0.031) K/mm3 Absolute Neuts (auto) (1.3-6.7) K/mm3 Absolute Nucleated RBC (0.0-0.012) K/mm3 Nucleated RBC % (0.0-0.2) % PT (11.1-14.7) Seconds INR APTT (22.3-36.8) Seconds Sodium (137-145) mmol/L Potassium (3.4-5.0) mmol/L Chloride (98-107) mmol/L Carbon Dioxide (22-30) mmol/L Anion Gap (4-12) mmol/L BUN (7-17) mg/dL Creatinine (0.7-1.0) mg/dL Estim Creat Clear Calc ml/min Estimated GFR (59 - ) Glucose (65-110) mg/dL Lactic Acid (0.7-2.0) mmol/L Calcium (8.4-10.2) mg/dL Magnesium (1.6-2.3) mg/dL Total Bilirubin (0.2-1.3) mg/dL AST (14-36) U/L ALT (6-35) U/L Alkaline Phosphatase (38-126) U/L Troponin I (0.000-0.034) ng/mL NT-Pro-B Natriuret Pep Cancelled (19.9-100) pg/mL Total Protein 8.0 (6.3-8.2) g/dL Albumin 4.1 (3.5-5.1) g/dL Triglycerides 129 (<150) mg/dL Cholesterol 151 (0-200) mg/dL LDL Cholesterol Direct 67 mg/dL HDL Direct 39 mg/dL Lipase 83 (23-300) U/L Imaging Data Radiologist's impression: ITS Impressions Chest X-Ray 12/18/24 13:05 IMPRESSION: Small bilateral pleural effusions without focal infiltrate. Abdomen/Pelvis CT 12/18/24 13:52 IMPRESSION: Right-sided diverticulosis. Postoperative change. Nonobstructing calcification within the right kidney. Findings within the liver which most likely represent benign cysts. Given patient's history (of breast cancer), further evaluation (nonemergently) with contrast-enhanced cross-sectional imaging of the abdomen (CT or MRI) with liver mass protocol is recommended. ECG Data EKG #1: Attestation: I personally reviewed and interpreted this ECG as follows: ECG completion date: 12/18/24 ECG completion time: 11:55 Interpretation: nonspecific t abnormalities EKG Interpretation: normal rate, sinus rhythm and NL axis Critical Care Time Critical Care Time Critical Care Time: Yes Total Critical Care Time: 45 Discharge Plan Discharge Clinical Impression: Acute kidney failure, Diarrhea, Elevated troponin, Acute dehydration Patient Disposition: Still a Patient Condition: Guarded Prognosis
[2024-12-18] MEDS: LACTATED RINGERS 1,000 ML 999 ML IV CONT (12:03)
--- OUTSIDE RECORDS SUMMARY | 2024-12-18 12:03 | XMS_ITS | Encounter Summary ---
Author Organization [facility] [employer] [facility] Address [address] [place] [address] Phone Care Team Providers Care Weed Science Research Technician Name Role Phone Lavon Smith MD Primary Care Provider [phone] Gonzalo Crenshaw DO Primary Care Provider [phone] Shar Ricketts MD Primary Care Provider [phone] Gonzalo Crenshaw DO Primary Care Provider [phone] Encounter Details Date Type Department Care Team (Latest Contact Info) Description 09/07/2015 Orders Only [facility] Scanning, Provider Social History Tobacco Use Types Packs/Day Years Used Date Smoking Tobacco: Never Assessed Comments Unknown Sex and Gender Information Value Date Recorded Sex Assigned at Not on file 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 Gender Identity Not on file Sexual Orientation [...] on filedocumented in this encounter Care Teams Weed Science Research Technician Relationship Specialty Start Date End Date Lavon Smith MD [address] [facility] MEDICINE [place], [place] [id number] PCP - General 10/15/16 06/22/19 Gonzalo Crenshaw DO [address] [place] [address] PCP - General Internal Medicine 06/23/19 08/05/22 Shar Ricketts MD [address] [place] [address] PCP - General Internal Medicine 08/06/22 08/08/24 Gonzalo Crenshaw DO [address] [place] [address] PCP - General Internal Medicine 08/09/24 documented as of this encounter
--- OUTSIDE RECORDS SUMMARY | 2024-12-18 12:03 | XMS_ITS | Clinical Summary ---
Author Organization 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 repairer service Advised topical HC for itching as well [...] Description 10/04/2024 3:20 PM CDT Office Visit [facility] Endocrinology Metabolism and Lipid [address], [address] [place] [address] John Weaver MD Post-surgical hypothyroidism (Primary Dx); Papillary thyroid carcinoma (HCC) 09/21/2024 Telephone [facility] Endocrinology Metabolism and Lipid [address] 5th [place] [address] [place] [address] Aracelis Mckeon RN from Last 3 Months Immunizations Immunization Administration Dates Next Due Influenza, Quadrivalent, Carol l Culture-based MDCK, Preservative Free, Antibiotic Free, Intramuscular 06/07/2022,03/06/2017 Influenza, Quadrivalent, Hig h Dose, Preservative Free, Intrr 04/06/2020 Influenza, Trivalent, High D ose, Split, Preservative Free, Intramuscular 04/01/2019 Influenza, Unspecified 06/02/2014,06/28/2013 Pneumococcal Conjugate PCV 13 04/06/2020, 019 Tdap 07/07/2019 Surgical History Surgery Date Site/Laterality Comments [place] DELIVERY ONLY Section - (Added by TW Conv) THYROIDECTOMY, PARTIAL Near-Total Thyroidectomy - (Added by TW Conv) MASTECTOMY Breast Surgery Mastectomy - (Added by TW Conv) [place] COLONOSCOPY FLX DX W/DAINA J SPEC WHEN [...] Canc er - (Added by TW Conv) 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 TEACHER malignancy Niece Colon cancer Sister Alive at [...] on file 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 Gender Identity Not on file Sexual Orientation [...] CDT) Thyroglobulin <0.1 ng/mL [facility]/Richy isbell [facility], Comment: Reference Range: Athyrotic: <0.1 [...] ORDERABLES Final Resu lt Performing Organization Address [facility] Co de Phone Number [facility], [address] [place] [address] * Thyroid Cancer (Thyroglobulin) Monitor (09/24/2024 9:24 AM CDT) Pathologist [facility] Thyroglobulin ab <1 < OR = 1 IU/mL [facility], Comment: This Thyroglobulin antibody test was performed using the [employer] Chemiluminescent method. Values obtained from different assay [...] ORDERABLES Final Resu lt Performing Organization Address [facility] de Phone Number [facility], [address] [place] [address] * TSH (09/24/2024 9:24 AM CDT) [facility] TSH 0.64 0.40 - 4.50 mIU/L [facility] Blood 09/24/2024 9:24 AM CDT 09/24/2024 9:25 AM CDT Narrative [facility] - 09/29/2024 3:16 PM CDT FASTING:YES FASTING: YES us John Weaver MD LAB BLOOD ORDERABLES Final Resu lt Performing Organization Address City/[facility]/ZIP Co de Phone Number [facility] [address] [place] [phone] * T4, free (09/24/2024 9:24 AM CDT) Free T4 1.5 0.8 - 1.8 ng/dL [facility] Blood 09/24/2024 9:24 AM CDT 09/24/2024 9:25 AM CDT Narrative [facility] - 09/29/2024 3:16 PM CDT FASTING:YES FASTING: YES John Weaver MD LAB BLOOD ORDERABLES Final Resu lt PEGGY [facility] [address] [place] [phone] * Screening Mammogram Right W Eladio Unilateral Only (08/20/2024 10:36 AM CDT) Anatomical Region Laterality Modality Breast Right Mammography Narrative 08/23/2024 10:51 AM CDT Mammogram Technique: Right Breast Digital Breast Tomosynthesis, Unilateral C-view 2D Screening mammogram. Views obtained: right craniocaudal and right mediolateral oblique. Computer Aided Detection was performed. Mammogram Findings: The present examination has been compared to prior imaging studies performed at [facility] on 07/04/2021, 07/31/2022 and [...] compared to prior imaging studies performed at [facility] on 07/04/2021, 07/31/2022 and [...] Most Recently Relevant to Health Maintenance Insurance [email or web address] [place] [email or web address] [place] [facility] MEDICARE [facility] MEDICARE Care Teams Information Services Assistant Relationship Specialty Start Date End Date Gonzalo Crenshaw DO [address] [address] PCP - General Internal Medicine 08/09/24
--- OUTSIDE RECORDS SUMMARY | 2024-12-18 12:03 | XMS_ITS | Referral Summary ---
Author Organization [facility] al Address [address] [place] [address] Care Team Providers Care Windows Application Packager Name Role Phone Gonzalo Crenshaw DO Primary Care Provider [phone] Encounters Date Type Department Care Team Description 10/04/2024 3:20 PM CDT Office Visit [facility] Endocrinology Metabolism and Lipid [address], [address] [place] [address] John Weaver MD Post-surgical hypothyroidism (Primary Dx); Papillary thyroid carcinoma (HCC) 09/21/2024 Telephone [facility] Endocrinology Metabolism and Lipid [address] [facility] 5th [place] [address] [place] [address] Aracelis Mckeon RN from Last 3 Months Allergies Active Allergy Reactions Criticality Noted Date Comments Sulfa (Sulfonamide Antibiotics) Stomach upset Low Medications Ca-D3-mag jb-hnwe-gfb-racheal -bor 600 mg calcium- 20 mcg-50 mg [...] and advised to contact her PCP or materials management supervisor Advised topical HC for itching as well [...] on file 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 Gender Identity Not on file Sexual Orientation [...] CDT) Thyroglobulin <0.1 ng/mL Zackary Eaton/Richy isbell [facility], Comment: Reference Range: Athyrotic: <0.1 Reference range [...] ORDERABLES Final Resu lt [facility]/Miranda [facility], [address] [place] [address] * Thyroid Cancer (Thyroglobulin) Monitor (09/24/2024 9:24 AM CDT) Thyroglobulin ab <1 < OR = 1 IU/mL [facility]/Richy [facility]bell [facility], Comment: This Thyroglobulin antibody test was performed using the [employer] Chemiluminescent method. Values obtained from different assay methods cannot be used interchangeably. Thyroglobulin antibody levels, regardless of value, should not be interpreted as absolute evidence of the presence or absence of disease. Blood 09/24/2024 9:24 AM CDT 09/24/2024 9:25 AM CDT Narrative [facility] - 09/29/2024 3:16 PM CDT FASTING:YES FASTING: YES John Weaver MD LAB BLOOD ORDERABLES Final Resu lt Performing Organization Address [facility]/ZIP Co de Phone Number [facility], [address] [place] [address] * TSH (09/24/2024 9:24 AM CDT) TSH 0.64 0.40 - 4.50 mIU/L [facility] Blood 09/24/2024 9:24 AM CDT 09/24/2024 9:25 AM CDT Narrative [facility] - 09/29/2024 3:16 PM CDT FASTING:YES FASTING: YES us John Weaver MD LAB BLOOD ORDERABLES Final Resu lt [facility] [address] [place] [address] * T4, free (09/24/2024 9:24 AM CDT) Free T4 1.5 0.8 - 1.8 ng/dL [facility] Blood 09/24/2024 9:24 AM CDT 09/24/2024 9:25 AM CDT Narrative [facility] - 09/29/2024 3:16 PM CDT FASTING:YES FASTING: YES John Weaver MD LAB BLOOD ORDERABLES Final Resu lt [facility] [address] [place] [address] * Screening Mammogram Right W Eladio Unilateral Only (08/20/2024 10:36 AM CDT) Anatomical Region Laterality Modality Breast Right Mammography Narrative 08/23/2024 10:51 AM CDT Mammogram Technique: Right Breast Digital Breast Tomosynthesis, Unilateral C-view 2D Screening mammogram. Views obtained: right craniocaudal and right mediolateral oblique. Computer Aided Detection was performed. Mammogram Findings: The present examination has been compared to prior imaging studies performed at [facility] on 07/04/2021, 07/31/2022 and 08/06/2023. There [...] compared to prior imaging studies performed at [facility] on 07/04/2021, 07/31/2022 and 08/06/2023. There [...] Most Recently Relevant to Health [place] [employer] [place] [id number] MEDICARE [employer] [place] [facility] MEDICARE [facility] MEDICARE Care Teams Windows Application Packager Relationship Specialty Start Date End Date Gonzalo Crenshaw DO [address] [facility] [place] [address] PCP - General Internal Medicine 08/09/24
[2024-12-18 12:05] LABS: Hematocrit 38.5 % (37.0-47.0); Hemoglobin 12.1 g/dL (12.0-15.0); Immature Granulocyte Percent A 0.5 % (0-0.5); Lymphocytes Absolute Auto 2.12 K/mm3 (0.9-3.2); Mean Corpuscular HGB Conc 31.4 g/dl (32-36); Mean Corpuscular Hemoglobin 27.7 pg (26-34); Mean Corpuscular Volume 88.1 fl (80-100); Nucleated Red Blood Cells Absolute Auto 0.000 K/mm3 (0.0-0.012); Nucleated Red Blood Cells Perc 0.0 % (0.0-0.2); Platelet Count Result 271 k/mm3 (150-375); Red Blood Count 4.37 M/mm3 (4.2-5.4); White Blood Count 17.0 K/mm3 (4.5-10.0)
[2024-12-18 12:19] LABS: INR 1.1; Prothrombin Time 14.6 Seconds (11.1-14.7)
[2024-12-18 12:20] LABS: Partial Thromboplastin Time 33.4 Seconds (22.3-36.8)
[2024-12-18 12:28] LABS: Alanine Aminotransferase 15 U/L (6-35); Albumin Level 4.1 g/dL (3.5-5.1); Alkaline Phosphatase 81 U/L (38-126); Anion Gap 10 mmol/L (4-12); Aspartate Amino Transferase 27 U/L (14-36); Bilirubin,Total 0.8 mg/dL (0.2-1.3); Blood Urea Nitrogen 26 mg/dL (7-17); Calcium 9.1 mg/dL (8.4-10.2); Carbon Dioxide 29 mmol/L (22-30); Chloride 96 mmol/L (98-107); Estimated CRCL calculation 32 ml/min; Estimated Glomerular Filt Rate 34; Glucose 119 mg/dL (65-110); Lipase 83 U/L (23-300); Magnesium 2.1 mg/dL (1.6-2.3); Potassium 3.1 mmol/L (3.4-5.0); Sodium 135 mmol/L (137-145); Total Protein 8.0 g/dL (6.3-8.2)
[2024-12-18 12:47] LABS: NT Pro B Type Natriuretic Pept 4500 pg/mL (19.9-100); Troponin I 0.527 ng/mL (0.000-0.034)
[2024-12-18] MEDS: ASPIRIN 81 MG CHEWABLE TABLET 324 MG PO (14:49)
[2024-12-18] MEDS: POTASSIUM CHLORIDE 20 MEQ ER TABLET 40 MEQ PO (14:49)
[2024-12-18] MEDS: LACTATED RINGERS 1,000 ML 150 ML IV CONT (14:50)
--- NOTE | 2024-12-18 14:58 | ECG_ITS ---
Test Date: 2024-12-18 15:09:28 Measurements Intervals Mona Rate: 81 P: 58 DC: 135 QRS: -26 QRSD: 108 T: 66 QT: 375 QTc: 436 Interpretive Statements SINUS RHYTHM LOW QRS VOLTAGE IN EXTREMITY LEADS [QRS DEFLECTION < 0.5 mV IN LIMB LEADS] PATTERN CONSISTENT WITH PULMONARY DISEASE INFERIOR MYOCARDIAL INFARCTION , OF INDETERMINATE AGE [40+ ms Q WAVE AND/OR ST/T ABNORMALITY IN II/aVF] Compared to ECG 12/18/2024 11:55:34 Low QRS voltage now present Myocardial infarct finding now present Electronically Signed On 12-19-2024 14:12:51 CDT by Jayesh Zhang M.D.
[2024-12-18] MEDS: metroNIDAZOLE 500 MG/ISO 100ML 500 MG/100 ML BAG 100 MG IVPB (15:05)
[2024-12-18 15:52] LABS: Troponin I 0.544 ng/mL (0.000-0.034)
[2024-12-18] MEDS: cefTRIAXone 1 GM in SODIUM CHLORIDE 0.9% IV 50 ML 100 ML IVPB (16:09)
[2024-12-18 16:18] LABS: Add Urine Microscopic? YES; Appearance Urine Clear (Clear); Glucose Urine UA Negative (Negative); Leukocyte Esterase Ur Negative LEU/UL (Negative); Need Manual Microscopic Reviewed; Nitrate Urine Negative (Negative); Non Pathogenic Casts 0-2; Specific Grav Ur > 1.045 (1.001-1.035)
--- NOTE | 2024-12-18 16:40 | P.HP_ITS ---
H&P: HPI History of Present Illness Date/Time: 12/18/24 16:40 Chief Complaint: Dehydration and diarrhea Narrative: 74-year-old female who headache appendectomy about a month ago. She states that she has had diarrhea since. Today she is feeling weak and fatigue so she presented to the emergency room. She states that she feels extremely dehydrated. She states that ever since she has had her appendix taken out she is not felt the same. She also complains of leg swelling and muscle cramps. She denies vomiting or nausea. Leukocytosis at 17.0, sodium 135, potassium 3.1, 26 creatinine 1.51, GFR of 34 troponin of 0.527 followed by 0.544, proBNP of 4500, UA negative for infection, C diff pending, liver cysts, right-sided diverticulosis. Chest x-ray with bilateral small pleural effusions. Review of Systems Review of Systems: 12 systems were reviewed and are negativ e except for as per HPI. FORMERLY [facility], [facility] Past Medical History Medical History BMI 33.0-33.9,adult Other and unspecified hyperlipidemia Prediabetes BMI 34.0-34.9,adult Chronic GERD Essential (primary) hypertension Adult hypothyroidism Primary malignant neoplasm of breast Surgical History Surgical History S/P appendectomy Family History Family History Father Hypertension Family history of coronary artery disease Family history of heart disease in male family member before age 55 Family history of diabetes mellitus in first degree relative Sibling Carcinoma of colon Grandparent Family history of coronary artery disease Carcinoma of colon Mother Other Cerebrovascular accident Diabetes mellitus Family history of cardiovascular disease Family history of gout Family history of malignant neoplasm Family history of malignant neoplasm of male breast Social History Social History Smoking status: Never smoker Second hand tobacco smoke exposure: No Alcohol intake: never Drinks per week: 1 Alcohol use details: mix drink Substance use: never Substance use type: does not use Do You Feel Safe in your Home?: Yes Lack of Transportation: No Lack of Food: Never True Current Housing: I Have Housing Concerned About Future Housing: No Difficulty Paying Gas/Electric Bills: No Difficulty Paying for Meds: No Currently Unemployed: No Education: High School Diploma/GED Difficulty w/ Childcare or Family Care: No Living arrangements: with family Occupation/Education: occupation 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 Gender identity (if verbalized by the patient): Female Spiritual care concerns: No Meds Home Medications and Allergies Home Medications ?Medication ?Instructions ?Recorded ?Confirmed ?Type calcium carbonate (Calcium 500) 1,200 mg PO DAILY 10/12/19 12/18/24 History omega 3-mtf-chl-fish oil 1,000 mg 1 cap PO DAILY 10/12/19 12/18/24 History (120 mg-180 mg) capsule (Fish Oil) valsartan 320 1 tablet PO DAILY #90 tabs 09/29/24 12/18/24 Rx mg-hydrochlorothiazide 25 mg tablet pantoprazole 40 mg tablet,delayed 40 mg PO BID #180 tabs 10/04/24 12/18/24 Rx release pravastatin 20 mg tablet 20 mg PO DAILY #90 tabs 10/26/24 12/18/24 Rx levothyroxine 100 mcg tablet 100 mcg PO DAILY 12/18/24 12/18/24 History (Levoxyl) Allergies Allergy/AdvReac Type Severity Reaction Status Date / Time clarithromycin Allergy Unknown Gastrointestinal Verified 12/18/24 18:09 Upset Sulfa (Sulfonamide Allergy Unknown Gastrointestinal Verified 12/18/24 18:09 Antibiotics) Upset Vital Signs Vital Signs - 24 hr 12/18/24 11:38 12/18/24 11:41 12/18/24 11:41 Temperature 98.2 F Pulse Rate 85 87 80 Respiratory Rate 18 Blood Pressure 132/79 104/67 103/69 Pulse Oximetry 99 12/18/24 11:45 12/18/24 11:51 12/18/24 12:03 Temperature Pulse Rate 84 Respiratory Rate Blood Pressure 109/60 Pulse Oximetry 99 99 12/18/24 12:15 12/18/24 12:16 12/18/24 12:30 Temperature Pulse Rate 81 Respiratory Rate 19 Blood Pressure 110/73 100/66 Pulse Oximetry 93 99 97 12/18/24 13:52 12/18/24 13:53 Temperature Pulse Rate 78 83 Respiratory Rate 17 18 Blood Pressure 105/70 101/64 Pulse Oximetry 99 97 Exam Narrative: General: well appearing, appears stated age. HEENT: normocephalic, atraumatic. Mucous membranes moist. EOMI, PERRLA, bilateral sclera anicteric, no conjunctival injection. Neck supple without JVD, lymphadenopathy, or bruit. Respiratory: clear to ascultation bilaterally. No rales/rhonic/wheezes. Cardiovascular: Regular rate and rhythm, normal S1-S2 upon ascultation. No murmurs, rubs, or clicks. PMI is nondisplaced, capillary refill less than 3 second. Abdomen: Soft, round, no pulsatile masses, nondistended and nontender. No rebound, no guarding. No CVA tenderness, no hepatosplenomegaly. Bowel sounds present to all four quadrants. No high pitch or tinkling sounds, resonant to percussion. Extremities: No cyanosis, clubbing, or edema present. Pulses are palpable 2/2. Active ROM to all four extremities. Neuro: Alert and orientated x 4. PERRLA. Cranial nerves 2-12 intact without focal deficit. Skin: Warm, dry, and intact, without rash, erythema, or lesion. Psych: pleasant, cooperative, normal speech, normal affect, no hallucinations, no dysarthia H&P: Results Labs Labs: Short CBC 12/18/24 Range/Units 11:56 WBC 17.0 H (4.5-10.0) K/mm3 Hgb 12.1 (12.0-15.0) g/dL Hct 38.5 (37.0-47.0) % Plt Count 271 (150-375) k/mm3 BMP 12/18/24 11:56 Sodium 135 L Potassium 3.1 L Chloride 96 L Carbon Dioxide 29 BUN 26 H D Creatinine 1.51 H Glucose 119 H Calcium 9.1 Cardiac Enzymes 12/18/24 12/18/24 12/18/24 Range/Units 11:56 11:56 15:04 Troponin I 0.527 H* Cancelled 0.544 H* (0.000-0.034) ng/mL Liver Function 12/18/24 Range/Units 11:56 Total Bilirubin 0.8 (0.2-1.3) mg/dL AST 27 (14-36) U/L ALT 15 (6-35) U/L Alkaline Phosphatase 81 (38-126) U/L Albumin 4.1 (3.5-5.1) g/dL Urine 12/18/24 Range/Units 16:03 Urine Color Yellow (Yellow) Urine Appearance Clear (Clear) Urine pH 6.0 (5.0-9.0) Ur Specific [place] > 1.045 H (1.001-1.035) Urine Protein 1+ H (Negative) mg/dL Urine Glucose (UA) Negative (Negative) mg/dL Assessment and Plan Assessment and plan (1) Elevated troponin: Code(s): R79.89 - Other specified abnormal findings of blood chemistry Status: Acute Assessment and Plan: Trend troponin Cardiology consulted Plan for echocardiogram EKG as needed No need for heparin at this time (2) Hyperlipidemia: Code(s): E78.5 - Hyperlipidemia, unspecified Status: Acute Assessment and Plan: Continue pravastatin (3) Hypokalemia: Code(s): E87.6 - Hypokalemia Status: Acute Assessment and Plan: Repeat as needed BMP in the morning (4) C. difficile diarrhea: Code(s): A04.72 - Enterocolitis due to Clostridium difficile, not specified as recurrent Status: Acute Assessment and Plan: Oral vancomycin (5) Liver lesion: Code(s): K76.9 - Liver disease, unspecified Status: Acute Assessment and Plan: Findings within the liver which most likely represent benign cysts. Given patient's history (of breast cancer), further evaluation (nonemergently) with contrast-enhanced cross-sectional imaging of the abdomen (CT or MRI) with liver mass protocol is recommended. MRI liver mass protocol pending Hospitalist [facility] Advance Care Plan I have confirmed that the patient's Advanced Care Plan is present, code status is documented, or surrogate decision maker is listed in patient medical record.: Yes Medication Reconciliation I have utilized all available resources to obtain, update and review the patients current medications (includes all prescriptions, OTC, herbals, cannabis, and nutritional supplements).: Yes
--- NOTE | 2024-12-18 17:22 | PC.NURSE ---
Patient admitted with IVF infusing per order
[2024-12-18 17:30] LABS: Cholesterol 151 mg/dL (0-200); HDL Direct 39 mg/dL; Triglycerides 129 mg/dL (<150)
[2024-12-18 17:45] LABS: Toxigenic C. Diff POSITIVE (NEGATIVE)
--- NOTE | 2024-12-18 17:53 | ADMGEN ---
This patient, Agnelica Pearson, was admitted to IMU Room 211-01 at 1724. Patient/family oriented to hospital policies and general routines including ID bracelet, bed and alarms, visiting hours, pain management, procedures, bathroom and other care routines, personal items, smoking policy, room service/diet, and visiting hours. Information on how to activate the Rapid Response Team has been discussed. Patient/Family are encouraged to report perceived risks to care and to ask questions if they do not understand what they are told or what they should do.
--- NOTE | 2024-12-18 17:54 | P.CONCA_ITS ---
Assessment and Plan Assessment and plan (1) Essential (primary) hypertension: Code(s): I10 - Essential (primary) hypertension Status: Acute (2) Elevated troponin: Code(s): R79.89 - Other specified abnormal findings of blood chemistry Status: Acute (3) Hyperlipidemia: Code(s): E78.5 - Hyperlipidemia, unspecified Status: Acute Plan 74-year-old woman with history of cancer, hypertension, and hyperlipidemia came in with weakness and diarrhea found to have elevated troponin Abnormal troponin -the clinical presentation is not consistent with acute plaque rupture -trend troponin to peak -obtain echocardiogram and if the echo is abnormal, we will evaluate further her history of cancer and treatments -if echo is normal and troponin plateaus, she can benefit from outpatient stress test -would not be unreasonable to continue aspirin 81 mg p.o. daily Hypertension -likely hold home meds in light of acute renal injury in setting of dehydration Hyperlipidemia -can resume statin History of Present Illness History of Present Illness Consult date/time: 12/18/24 17:54 Requesting physician: Saray Martinez MD Consult reason: Other Reason For Visit: PILI, Dehydration, Elevated troponin Narrative: 74-year-old woman with history of cancer, hypertension, and hyperlipidemia came in with weakness and diarrhea. Denies any chest discomfort. A month ago she had appendectomy emergently and [place] after which she had some shortness of breath. 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 She is still able to ambulate and continue with her activities of daily living without any cardiopulmonary limitations. She has been on variety of antibiotics for a month for her diarrhea post appendectomy and now has been found to have C diff as well as elevated troponin in the setting of acute renal injury from dehydration. Denies any orthopnea and syncopal events. Has intermittent lower extremity swelling. Review of Systems 2 Cardiovascular: Cardiovascular: Reports as per HPI Respiratory: Respiratory: Reports as per HPI [facility] Past Medical History Medical History BMI 33.0-33.9,adult Other and unspecified hyperlipidemia Prediabetes BMI 34.0-34.9,adult Chronic GERD Essential (primary) hypertension Adult hypothyroidism Primary malignant neoplasm of breast Surgical History Surgical History S/P appendectomy Family History Family History Father Hypertension Family history of coronary artery disease Family history of heart disease in male family member before age 55 Family history of diabetes mellitus in first degree relative Sibling Carcinoma of colon Grandparent Family history of coronary artery disease Carcinoma of colon Mother Other Cerebrovascular accident Diabetes mellitus Family history of cardiovascular disease Family history of gout Family history of malignant neoplasm Family history of malignant neoplasm of male breast Social History Social History Smoking status: Never smoker Second hand tobacco smoke exposure: No Alcohol intake: current Drinks per week: 1 Alcohol use details: mix drink Substance use: never Substance use type: does not use Do You Feel Safe in your Home?: Yes Lack of Transportation: No Lack of Food: Never True Current Housing: I Have Housing Concerned About Future Housing: No Difficulty Paying Gas/Electric Bills: No Difficulty Paying for Meds: No Currently Unemployed: No Education: High School Diploma/GED Difficulty w/ Childcare or Family Care: No Living arrangements: with family Occupation/Education: occupation 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 Gender identity (if verbalized by the patient): Female Meds Home Medications and Allergies Home Medications ?Medication ?Instructions ?Recorded ?Confirmed ?Type calcium carbonate (Calcium 500) 500 mg PO DAILY 10/12/19 11/24/24 History omega 9-hng-iua-fish oil 1,000 mg 1 cap PO DAILY 10/12/19 11/24/24 History (120 mg-180 mg) capsule (Fish Oil) loratadine 10 mg tablet (Claritin) 10 mg PO DAILY PRN allergic 07/09/22 11/24/24 Rx symptoms #30 tabs buspirone 15 mg tablet 15 mg PO BID PRN anxiety #30 tabs 08/21/22 11/24/24 Rx levothyroxine 125 mcg tablet 100 mcg PO DAILY 02/26/23 11/24/24 History valsartan 320 1 tablet PO DAILY #90 tabs 09/29/24 11/24/24 Rx mg-hydrochlorothiazide 25 mg tablet pantoprazole 40 mg tablet,delayed 40 mg PO BID #180 tabs 10/04/24 11/24/24 Rx release pravastatin 20 mg tablet 20 mg PO DAILY #90 tabs 10/26/24 11/24/24 Rx Allergies Allergy/AdvReac Type Severity Reaction Status Date / Time clarithromycin Allergy Unknown Gastrointestinal Verified 11/25/24 08:36 Upset Sulfa (Sulfonamide Allergy Unknown Gastrointestinal Verified 11/25/24 08:36 Antibiotics) Upset Vital Signs Vital Signs - 24 hr 12/18/24 11:38 12/18/24 11:41 12/18/24 11:41 Temperature 36.8 C Pulse Rate 85 87 80 Respiratory Rate 18 Blood Pressure 132/79 104/67 103/69 Pulse Oximetry 99 12/18/24 11:45 12/18/24 11:51 12/18/24 12:03 Temperature Pulse Rate 84 Respiratory Rate Blood Pressure 109/60 Pulse Oximetry 99 99 12/18/24 12:15 12/18/24 12:16 12/18/24 12:30 Temperature Pulse Rate 81 Respiratory Rate 19 Blood Pressure 110/73 100/66 Pulse Oximetry 93 99 97 12/18/24 13:52 12/18/24 13:53 12/18/24 14:05 Temperature Pulse Rate 78 83 Respiratory Rate 17 18 Blood Pressure 105/70 101/64 Pulse Oximetry 99 97 99 12/18/24 14:15 12/18/24 14:16 12/18/24 14:30 Temperature Pulse Rate Respiratory Rate Blood Pressure 94/59 L 107/72 Pulse Oximetry 96 99 97 12/18/24 14:31 12/18/24 14:45 12/18/24 14:46 Temperature Pulse Rate Respiratory Rate Blood Pressure 113/70 Pulse Oximetry 99 98 97 12/18/24 15:12 12/18/24 15:15 12/18/24 15:16 Temperature Pulse Rate 82 82 81 Respiratory Rate Blood Pressure 100/64 Pulse Oximetry 94 97 95 12/18/24 15:30 12/18/24 15:31 12/18/24 17:04 Temperature Pulse Rate 84 86 81 Respiratory Rate 17 Blood Pressure 83/38 L 102/70 Pulse Oximetry 97 98 97 Exam 2 Const: General: comfortable HENMT: Mouth: Yes dry mucous membranes Eyes: EOM: EOMs intact bilaterally Neck: Neck: no JVD Resp: Effort & Inspection: normal respiratory effort Auscultation: clear to auscultation bilaterally Cardio: Rate: regular rate Rhythm: regular rhythm Neuro: Speech: normal speech Extrem: General: no pedal edema Results Labs and Meds 12/18/24 11:56 12/18/24 11:56 Lab results: Cardiac Enzymes 12/18/24 12/18/24 12/18/24 Range/Units 11:56 11:56 15:04 AST 27 (14-36) U/L Troponin I 0.527 H* Cancelled 0.544 H* (0.000-0.034) ng/mL Coagulation 12/18/24 Range/Units 11:56 PT 14.6 (11.1-14.7) Seconds APTT 33.4 (22.3-36.8) Seconds Lipids 12/18/24 Range/Units 11:56 Triglycerides 129 (<150) mg/dL Cholesterol 151 (0-200) mg/dL CBC 12/18/24 Range/Units 11:56 WBC 17.0 H (4.5-10.0) K/mm3 RBC 4.37 (4.2-5.4) M/mm3 Hgb 12.1 (12.0-15.0) g/dL Hct 38.5 (37.0-47.0) % Plt Count 271 (150-375) k/mm3 Lymph # (Auto) 2.12 (0.9-3.2) K/mm3 Bibb # (Auto) 1.9 H (0.1-0.6) K/mm3 Eos # (Auto) 0.1 (0-0.3) K/mm3 Baso # (Auto) 0.1 (0.0-0.1) K/mm3 Comprehensive Metabolic Panel 12/18/24 Range/Units 11:56 Sodium 135 L (137-145) mmol/L Potassium 3.1 L (3.4-5.0) mmol/L Chloride 96 L (98-107) mmol/L Carbon Dioxide 29 (22-30) mmol/L BUN 26 H D (7-17) mg/dL Creatinine 1.51 H (0.7-1.0) mg/dL Glucose 119 H (65-110) mg/dL Calcium 9.1 (8.4-10.2) mg/dL AST 27 (14-36) U/L ALT 15 (6-35) U/L Alkaline Phosphatase 81 (38-126) U/L Total Protein 8.0 (6.3-8.2) g/dL Albumin 4.1 (3.5-5.1) g/dL Intake and Output 12/18/24 12/18/24 12/18/24 07:59 15:59 23:59 Intake Total 1000 150 Balance 1000 150 Intake: IV 1000 150 Lactated Ringers 1,000 ml @ 999 1000 mls/hr IV CONT .Q1H1M STA Rx#: [id number] cefTRIAXone 1 gm In Sodium 50 Chloride 0.9% IV 50 ml @ 100 mls/hr IVPB ONCE STA Rx#: [id number] metroNIDAZOLE 500 MG/ISO 100ML 100 500 mg In 100 ml @ 100 mls/hr IVPB ONCE STA Rx#:[id number] Patient Weight 12/18/24 23:59 Weight 80.2 kg
--- OUTSIDE RECORDS SUMMARY | 2024-12-18 18:51 | XMS_ITS | Clinical Summary ---
Author Organization 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 Name Role Phone Gonzalo Crenshaw DO Primary Care Provider [phone] Allergies Active Allergy Reactions Criticality Noted Date Comments Sulfa (Sulfonamide Antibiotics) Stomach upset Low Medications Ca-D3-mag fo-yagk-gco-racheal -bor 600 mg calcium- 20 mcg-50 mg [...] and advised to contact her PCP or lineworker Advised topical HC for itching as well [...] Description 10/04/2024 3:20 PM CDT Office Visit [facility] Endocrinology Metabolism and Lipid [address], [address] [place] [address] John Weaver MD Post-surgical hypothyroidism (Primary Dx); Papillary thyroid carcinoma (HCC) 09/21/2024 Telephone [facility] Endocrinology Metabolism and Lipid [address] 5th [place] [address] [place] [address] Aracelis Mckeon RN from Last 3 Months Immunizations Immunization Administration Dates Next Due Influenza, Quadrivalent, Carol l Culture-based MDCK, Preservative Free, Antibiotic Free, Intramuscular 06/07/2022,03/06/2017 Influenza, Quadrivalent, Hig h Dose, Preservative Free, Intrr 04/06/2020 Influenza, Trivalent, High D ose, Split, Preservative Free, Intramuscular 04/01/2019 Influenza, Unspecified 06/02/2014,06/28/2013 Pneumococcal Conjugate PCV 13 04/06/2020, 019 Tdap 07/07/2019 Surgical History Surgery Date Site/Laterality Comments [place] DELIVERY ONLY Section - (Added by TW Conv) THYROIDECTOMY, PARTIAL Near-Total Thyroidectomy - (Added by TW Conv) MASTECTOMY Breast Surgery Mastectomy - (Added by TW Conv) [place] COLONOSCOPY FLX DX W/DAINA J SPEC WHEN [...] Canc er - (Added by TW Conv) ACCESS SPECIALIST malignancy Niece Colon cancer Sister Alive at [...] on file 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 Gender Identity Not on file Sexual [...] CDT) Thyroglobulin <0.1 ng/mL [facility], Comment: Reference Range: Athyrotic: <0.1 [...] Final Resu lt Performing Organization Address [facility] Co de Phone Number [facility], [address] [place] [address] * Thyroid Cancer (Thyroglobulin) Monitor (09/24/2024 9:24 AM CDT) Pathologist [facility] Thyroglobulin ab <1 < OR = 1 IU/mL [facility], Comment: This Thyroglobulin antibody test was performed using the [employer] Chemiluminescent method. Values obtained from different assay [...] ORDERABLES Final Resu lt Performing Organization Address [facility] de Phone Number [facility], [address] [place] [address] * TSH (09/24/2024 9:24 AM CDT) [facility] TSH 0.64 0.40 - 4.50 mIU/L [facility] Blood 09/24/2024 9:24 AM CDT 09/24/2024 9:25 AM CDT Narrative [facility] - 09/29/2024 3:16 PM CDT FASTING:YES FASTING: YES us John Weaver MD LAB BLOOD ORDERABLES Final Resu lt Performing Organization Address City/[facility]/ZIP Co de Phone Number [facility] [address] [place] [phone] * T4, free (09/24/2024 9:24 AM CDT) Free T4 1.5 0.8 - 1.8 ng/dL [facility] Blood 09/24/2024 9:24 AM CDT 09/24/2024 9:25 AM CDT Narrative [facility] - 09/29/2024 3:16 PM CDT FASTING:YES FASTING: YES John Weaver MD LAB BLOOD ORDERABLES Final Resu lt PEGGY [facility] [address] [place] [address] * Screening Mammogram Right W Eladio Unilateral Only (08/20/2024 10:36 AM CDT) Anatomical Region Laterality Modality Breast Right Mammography Narrative 08/23/2024 10:51 AM CDT Mammogram Technique: Right Breast Digital Breast Tomosynthesis, Unilateral C-view 2D Screening mammogram. Views obtained: right craniocaudal and right mediolateral oblique. Computer Aided Detection was performed. Mammogram Findings: The present examination has been compared to prior imaging studies performed at [facility] on 07/04/2021, 07/31/2022 and 08/06/2023. There [...] compared to prior imaging studies performed at [facility] on 07/04/2021, 07/31/2022 and 08/06/2023. There [...] Most Recently Relevant to Health Maintenance [place] [employer] [place] [employer] [place] [facility] MEDICARE [facility] MEDICARE Care Teams Coal Trimmer Machine Operator Relationship Specialty Start Date End Date Gonzalo Crenshaw DO [address] [address] PCP - General Internal Medicine 08/09/24
--- OUTSIDE RECORDS SUMMARY | 2024-12-18 18:51 | XMS_ITS | Referral Summary ---
Author Organization [facility] al Address [address] [place] [address] Care Team Providers Care Strategies Analyst Name Role Phone Gonzalo Crenshaw DO Primary Care Provider [phone] Encounters Date Type Department Care Team Description 10/04/2024 3:20 PM CDT Office Visit [facility] Endocrinology Metabolism and Lipid [address], [address] [place] [address] John Weaver MD Post-surgical hypothyroidism (Primary Dx); Papillary thyroid carcinoma (HCC) 09/21/2024 Telephone [facility] Endocrinology Metabolism and Lipid [address] 5th [place] [address] [place] [address] Aracelis Mckeon RN from Last 3 Months Allergies Active Allergy Reactions Criticality Noted Date Comments Sulfa (Sulfonamide Antibiotics) Stomach upset Low Medications Ca-D3-mag qm-quhc-moj-racheal -bor 600 mg calcium- 20 mcg-50 mg [...] and advised to contact her PCP or mold sheet cleaner Advised topical HC for itching as well [...] on file 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 Values obtained from different assay methods cannot be used interchangeably. Thyroglobulin antibody levels, regardless of value, should not be interpreted as absolute evidence of the presence or absence of disease. Blood 09/24/2024 9:24 AM CDT 09/24/2024 9:25 AM CDT Narrative [facility] - 09/29/2024 3:16 PM CDT FASTING:YES FASTING: YES John Weaver MD LAB BLOOD ORDERABLES Final Resu lt Performing Organization Address [facility]/ZIP Co de Phone Number [facility], [address] [place] [address] * TSH (09/24/2024 9:24 AM CDT) TSH 0.64 0.40 - 4.50 mIU/L [facility] Blood 09/24/2024 9:24 AM CDT 09/24/2024 9:25 AM CDT Narrative [facility] - 09/29/2024 3:16 PM CDT FASTING:YES FASTING: YES us John Weaver MD LAB BLOOD ORDERABLES Final Resu lt [facility] [address] [place] [address] * T4, free (09/24/2024 9:24 AM CDT) Free T4 1.5 0.8 - 1.8 ng/dL [facility] Blood 09/24/2024 9:24 AM CDT 09/24/2024 9:25 AM CDT Narrative [facility] - 09/29/2024 3:16 PM CDT FASTING:YES FASTING: YES John Weaver MD LAB BLOOD ORDERABLES Final Resu lt [facility] [address] [place] [address] * Screening Mammogram Right W Eladio Unilateral Only (08/20/2024 10:36 AM CDT) Anatomical Region Laterality Modality Breast Right Mammography Narrative 08/23/2024 10:51 AM CDT Mammogram Technique: Right Breast Digital Breast Tomosynthesis, Unilateral C-view 2D Screening mammogram. Views obtained: right craniocaudal and right mediolateral oblique. Computer Aided Detection was performed. Mammogram Findings: The present examination has been compared to prior imaging studies performed at [facility] on 07/04/2021, 07/31/2022 and 08/06/2023. There [...] compared to prior imaging studies performed at [facility] on 07/04/2021, 07/31/2022 and 08/06/2023. There [...] Most Recently Relevant to [place] [id number] MEDICARE [employer] [place] [facility] ACCESS MEDICARE [facility] MEDICARE Care Teams Strategies Analyst Relationship Specialty Start Date End Date Gonzalo Crenshaw DO [address] [facility] [place] [address] PCP - General Internal Medicine 08/09/24
--- OUTSIDE RECORDS SUMMARY | 2024-12-18 18:51 | XMS_ITS | Encounter Summary ---
Author Organization [facility] [employer] [facility] Address [address] [place] [address] Phone Care Team Providers Care Build Manager Name Role Phone Lavon Smith MD Primary Care Provider [phone] Gonzalo Crenshaw DO Primary Care Provider [phone] Shar Ricketts MD Primary Care Provider [phone] Gonzalo Crenshaw DO Primary Care Provider [phone] Encounter Details Date Type Department Care Team (Latest Contact Info) Description 09/07/2015 Orders Only [facility] Scanning, Provider Social History Tobacco Use Types Packs/Day Years Used Date Smoking Tobacco: Never Assessed Comments Unknown Sex and Gender Information Value Date Recorded Sex Assigned at Not on file 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 Gender Identity Not on file Sexual Orientation [...] on filedocumented in this encounter Care Teams Build Manager Relationship Specialty Start Date End Date Lavon Smith MD [address] [employer] [place], [place] [id number] PCP - General 10/15/16 06/22/19 Gonzalo Crenshaw DO [address] [place] [address] PCP - General Internal Medicine 06/23/19 08/05/22 Shar Ricketts MD [address] [place] [address] PCP - General Internal Medicine 08/06/22 08/08/24 Gonzalo Crenshaw DO [address] [place] [address] PCP - General Internal Medicine 08/09/24 documented as of this encounter
[2024-12-18 22:42] LABS: Troponin I 0.490 ng/mL (0.000-0.034)
[2024-12-19] VITALS (15 sets, daily range): BP systolic 100–131; BP diastolic 45–75; PULSE 75–107; RESP 16–20; TEMP 36.5–37.2; O2SAT 93–98
[2024-12-19] MEDS: VANCOMYCIN HCL 125 MG ORAL CAPSULE PO ×4 (00:43→17:40)
[2024-12-19] MEDS: LACTATED RINGERS 1,000 ML 150 ML IV CONT ×3 (01:59→17:40)
[2024-12-19 04:36] LABS: Hematocrit 31.5 % (37.0-47.0); Hemoglobin 10.1 g/dL (12.0-15.0); Immature Granulocyte Percent A 0.6 % (0-0.5); Lymphocytes Absolute Auto 1.56 K/mm3 (0.9-3.2); Mean Corpuscular HGB Conc 32.1 g/dl (32-36); Mean Corpuscular Hemoglobin 28.1 pg (26-34); Mean Corpuscular Volume 87.5 fl (80-100); Nucleated Red Blood Cells Absolute Auto 0.000 K/mm3 (0.0-0.012); Nucleated Red Blood Cells Perc 0.0 % (0.0-0.2); Platelet Count Result 221 k/mm3 (150-375); Red Blood Count 3.60 M/mm3 (4.2-5.4); White Blood Count 13.9 K/mm3 (4.5-10.0)
[2024-12-19 05:01] LABS: Alanine Aminotransferase 12 U/L (6-35); Albumin Level 3.4 g/dL (3.5-5.1); Alkaline Phosphatase 69 U/L (38-126); Anion Gap 7 mmol/L (4-12); Aspartate Amino Transferase 23 U/L (14-36); Bilirubin,Total 0.4 mg/dL (0.2-1.3); Blood Urea Nitrogen 22 mg/dL (7-17); Calcium 8.3 mg/dL (8.4-10.2); Carbon Dioxide 24 mmol/L (22-30); Chloride 103 mmol/L (98-107); Estimated CRCL calculation 40 ml/min; Estimated Glomerular Filt Rate 44; Glucose 106 mg/dL (65-110); Potassium 3.3 mmol/L (3.4-5.0); Sodium 134 mmol/L (137-145); Total Protein 6.6 g/dL (6.3-8.2)
[2024-12-19] MEDS: LEVOTHYROXINE SODIUM 100 MCG TABLET PO (06:19)
[2024-12-19] MEDS: PRAVASTATIN SODIUM 20 MG TABLET PO (08:58)
[2024-12-19] MEDS: PANTOPRAZOLE 40 MG TABLET PO ×2 (08:58→22:12)
[2024-12-19] MEDS: POTASSIUM CHLORIDE 20 MEQ PACKET (FOR LIQUID) 40 MEQ PO (08:58)
[2024-12-19] MEDS: ASPIRIN 81 MG ENTERIC TABLET PO (08:58)
--- OUTSIDE RECORDS SUMMARY | 2024-12-19 12:17 | XMS_ITS | Clinical Summary ---
Author Organization [facility] al Address [address] [place] [address] Care Team Providers Care Sweatband Drummer Name Role Phone Gonzalo Crenshaw DO Primary Care Provider [phone] Allergies Active Allergy Reactions Criticality Noted Date Comments Sulfa (Sulfonamide Antibiotics) Stomach upset Low Medications Ca-D3-mag rm-gbys-vfh-racheal -bor 600 mg calcium- 20 mcg-50 mg [...] and advised to contact her PCP or head swamper Advised topical HC for itching as well [...] Description 10/04/2024 3:20 PM CDT Office Visit [facility] Endocrinology Metabolism and Lipid [address] [facility] [address], [address] [place] [address] John Weaver MD Post-surgical hypothyroidism (Primary Dx); Papillary thyroid carcinoma (HCC) 09/21/2024 Telephone [facility] Endocrinology Metabolism and Lipid [address] [facility] [facility] 5th [place] [address] [place] [address] Aracelis Mckeon RN from Last 3 Months Immunizations Immunization Administration Dates Next Due Influenza, Quadrivalent, Carol l Culture-based MDCK, Preservative Free, Antibiotic Free, Intramuscular 06/07/2022,03/06/2017 Influenza, Quadrivalent, Hig h Dose, Preservative Free, Intrr 04/06/2020 Influenza, Trivalent, High D ose, Split, Preservative Free, Intramuscular 04/01/2019 Influenza, Unspecified 06/02/2014,06/28/2013 Pneumococcal Conjugate PCV 13 04/06/2020, 019 Tdap 07/07/2019 Surgical History Surgery Date Site/Laterality Comments [place] DELIVERY ONLY Section - (Added by TW Conv) THYROIDECTOMY, PARTIAL Near-Total Thyroidectomy - (Added by TW Conv) MASTECTOMY Breast Surgery Mastectomy - (Added by TW Conv) [place] COLONOSCOPY FLX DX W/DAINA J SPEC WHEN [...] Canc er - (Added by TW Conv) CASTING CLEANER malignancy Niece Colon cancer Sister Alive at [...] on file 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 Gender Identity Not on file Sexual Orientation [...] CDT) Thyroglobulin <0.1 ng/mL [facility], Comment: Reference Range: Athyrotic: <0.1 Reference range [...] ORDERABLES Final Resu lt Performing Organization Address [facility] Co de Phone Number [facility], [address] [place] [address] * Thyroid Cancer (Thyroglobulin) Monitor (09/24/2024 9:24 AM CDT) Pathologist [facility] Thyroglobulin ab <1 < OR = 1 IU/mL [facility], Comment: This Thyroglobulin antibody test was performed using the fastDove Chemiluminescent method. Values obtained from different assay [...] ORDERABLES Final Resu lt Performing Organization Address [facility] de Phone Number [facility], [address] [place] [address] * TSH (09/24/2024 9:24 AM CDT) [facility] TSH 0.64 0.40 - 4.50 mIU/L [facility] Blood 09/24/2024 9:24 AM CDT 09/24/2024 9:25 AM CDT Narrative [facility] - 09/29/2024 3:16 PM CDT FASTING:YES FASTING: YES us John Weaver MD LAB BLOOD ORDERABLES Final Resu lt Performing Organization Address City/[facility]/ZIP Co de Phone Number [facility] [address] [address] [place] [address] * T4, free (09/24/2024 9:24 AM CDT) Free T4 1.5 0.8 - 1.8 ng/dL [facility] Blood 09/24/2024 9:24 AM CDT 09/24/2024 9:25 AM CDT Narrative [facility] - 09/29/2024 3:16 PM CDT FASTING:YES FASTING: YES John Weaver MD LAB BLOOD ORDERABLES Final Resu lt [facility] [address] [address] [place] [address] * Screening Mammogram Right W Eladio Unilateral Only (08/20/2024 10:36 AM CDT) Anatomical Region Laterality Modality Breast Right Mammography Narrative 08/23/2024 10:51 AM CDT Mammogram Technique: Right Breast Digital Breast Tomosynthesis, Unilateral C-view 2D Screening mammogram. Views obtained: right craniocaudal and right mediolateral oblique. Computer Aided Detection was performed. Mammogram Findings: The present examination has been compared to prior imaging studies performed at [facility] on 07/04/2021, 07/31/2022 and 08/06/2023. [...] compared to prior imaging studies performed at [facility] on 07/04/2021, 07/31/2022 and 08/06/2023. [...] Most Recently Relevant to Health Maintenance Insurance Svbtle [place] MEDICARE Svbtle OR [facility] MEDICARE FORMERLY [facility], [facility]1983 MEDICARE Care Teams Sweatband Drummer Relationship Specialty Start Date End Date Gonzalo Crenshaw DO [address] [address] PCP - General Internal Medicine 08/09/24
--- OUTSIDE RECORDS SUMMARY | 2024-12-19 12:17 | XMS_ITS | Encounter Summary ---
Author Organization [facility] Address [address] [place] [address] Phone Care Team Providers Care Vegetable Grader Name Role Phone Lavon Smith MD Primary Care Provider [phone] Gonzalo Crenshaw DO Primary Care Provider [phone] Shar Ricketts MD Primary Care Provider [phone] Gonzalo Crenshaw DO Primary Care Provider [phone] Encounter Details Date Type Department Care Team (Latest Contact Info) Description 09/07/2015 Orders Only [facility] Scanning, Provider Social History Tobacco Use Types Packs/Day Years Used Date Smoking Tobacco: Never Assessed Comments Unknown Sex and Gender Information Value Date Recorded Sex Assigned at Not on file 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 Gender Identity Not on file Sexual Orientation [...] on filedocumented in this encounter Care Teams Vegetable Grader Relationship Specialty Start Date End Date Lavon Smith MD [address] [facility] [place], [place] [id number] PCP - General 10/15/16 06/22/19 Gonzalo Crenshaw DO [address] [place] [address] PCP - General Internal Medicine 06/23/19 08/05/22 Shar Ricketts MD [address] [place] [address] PCP - General Internal Medicine 08/06/22 08/08/24 Gonzalo Crenshaw DO [address] [place] [address] PCP - General Internal Medicine 08/09/24 documented as of this encounter
--- OUTSIDE RECORDS SUMMARY | 2024-12-19 12:17 | XMS_ITS | Referral Summary ---
Author Organization [facility] al Address [address] [place] [address] Care Team Providers Care Cab Station Attendant Name Role Phone Gonzalo Crenshaw DO Primary Care Provider [phone] Encounters Date Type Department Care Team Description 10/04/2024 3:20 PM CDT Office Visit [facility] Endocrinology Metabolism and Lipid [address] [facility] [address], [address] [place] [address] John Weaver MD Post-surgical hypothyroidism (Primary Dx); Papillary thyroid carcinoma (HCC) 09/21/2024 Telephone [facility] Endocrinology Metabolism and Lipid [address] [facility] 5th [place] [address] [place] [address] Aracelis Mckeon RN from Last 3 Months Allergies Active Allergy Reactions Criticality Noted Date Comments Sulfa (Sulfonamide Antibiotics) Stomach upset Low Medications Ca-D3-mag hb-bkym-ihy-racheal -bor 600 mg calcium- 20 mcg-50 mg [...] and advised to contact her PCP or tandem mill roller Advised topical HC for itching as well [...] on file 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 Values obtained from different assay methods cannot be used interchangeably. Thyroglobulin antibody levels, regardless of value, should not be interpreted as absolute evidence of the presence or absence of disease. Blood 09/24/2024 9:24 AM CDT 09/24/2024 9:25 AM CDT Narrative [facility] - 09/29/2024 3:16 PM CDT FASTING:YES FASTING: YES John Weaver MD LAB BLOOD ORDERABLES Final Resu lt Performing Organization Address [facility]/ZIP Co de Phone Number [facility], [address] [place] [address] * TSH (09/24/2024 9:24 AM CDT) TSH 0.64 0.40 - 4.50 mIU/L [facility] Blood 09/24/2024 9:24 AM CDT 09/24/2024 9:25 AM CDT Narrative [facility] - 09/29/2024 3:16 PM CDT FASTING:YES FASTING: YES us John Weaver MD LAB BLOOD ORDERABLES Final Resu lt [facility] [address] [facility] [facility] [address] [place] [address] * T4, free (09/24/2024 9:24 AM CDT) Free T4 1.5 0.8 - 1.8 ng/dL [facility] Blood 09/24/2024 9:24 AM CDT 09/24/2024 9:25 AM CDT Narrative [facility] - 09/29/2024 3:16 PM CDT FASTING:YES FASTING: YES John Weaver MD LAB BLOOD ORDERABLES Final Resu lt [facility] [address] [place] [address] * Screening Mammogram Right W Eladio Unilateral Only (08/20/2024 10:36 AM CDT) Anatomical Region Laterality Modality Breast Right Mammography Narrative 08/23/2024 10:51 AM CDT Mammogram Technique: Right Breast Digital Breast Tomosynthesis, Unilateral C-view 2D Screening mammogram. Views obtained: right craniocaudal and right mediolateral oblique. Computer Aided Detection was performed. Mammogram Findings: The present examination has been compared to prior imaging studies performed at on 07/04/2021, 07/31/2022 and 08/06/2023. There are [...] compared to prior imaging studies performed at on 07/04/2021, 07/31/2022 and 08/06/2023. There are [...] Most Recently Relevant [place] [id number] [place] [facility] MEDICARE FORMERLY [facility] MEDICARE Care Teams Cab Station Attendant Relationship Specialty Start Date End Date Gonzalo Crenshaw DO [address] [facility] [place] [address] PCP - General Internal Medicine 08/09/24
--- NOTE | 2024-12-19 13:34 | P.PNIM_ITS ---
Progress Note: A&P Assessment and Plan (1) Elevated troponin: Code(s): R79.89 - Other specified abnormal findings of blood chemistry Status: Acute Assessment and Plan: Trend troponin Cardiology consulted Plan for echocardiogram EKG as needed No need for heparin at this time (2) Hyperlipidemia: Code(s): E78.5 - Hyperlipidemia, unspecified Status: Acute Assessment and Plan: Continue pravastatin (3) Hypokalemia: Code(s): E87.6 - Hypokalemia Status: Acute Assessment and Plan: Repeat as needed BMP in the morning (4) C. difficile diarrhea: Code(s): A04.72 - Enterocolitis due to Clostridium difficile, not specified as recurrent Status: Acute Assessment and Plan: Oral vancomycin (5) Liver lesion: Code(s): K76.9 - Liver disease, unspecified Status: Acute Assessment and Plan: Findings within the liver which most likely represent benign cysts. Given patient's history (of breast cancer), further evaluation (nonemergently) with contrast-enhanced cross-sectional imaging of the abdomen (CT or MRI) with liver mass protocol is recommended. MRI liver mass protocol pending Plan patient presented with c/o diarrhea and is found to have C diff, and persisting has several loose BM, patient is being treated with vancomycin 125mg q6 PO, patient is also found to have elevated tropes, patient is seen by ladle filler does not suspect acute plaque rupture, to further evaluate ordered cardiac ECHO, suggested if there is significant structural abnormalities further recommendation to follow. patient remain clinical stable, will monitor Subjective Date/time seen: 12/19/24 13:34 Interval history: Dehydration and diarrhea H&P Narrative: 74-year-old female who headache appendectomy about a month ago. She states that she has had diarrhea since. Today she is feeling weak and fatigue so she presented to the emergency room. She states that she feels extremely dehydrated. She states that ever since she has had her appendix taken out she is not felt the same. She also complains of leg swelling and muscle cramps. She denies vomiting or nausea. Leukocytosis at 17.0, sodium 135, potassium 3.1, 26 creatinine 1.51, GFR of 34 troponin of 0.527 followed by 0.544, proBNP of 4500, UA negative for infection, C diff pending, liver cysts, right-sided diverticulosis. Chest x-ray with bilateral small pleural effusions. patient presented with c/o diarrhea and is found to have C diff, and persisting has several loos BM, patient is being treated with vancomycin 125mg q6 PO, patient is also found to have elevated tropes, patient is seen by ladle filler does not suspect acute plaque rupture, to further evaluate ordered cardiac ECHO, suggested if there is significant structural abnormalities further recommendation to follow. patient remain clinical stable, will monitor Review of Systems Review of Systems: 12 systems were reviewed and are negativ e except for as per HPI. Exam Narrative: Patient is comfortable, NAD HEENT: eyes are clear and none icteric LUNGS:CTA HEART: RR S1S2 ABD: BS+, Soft and nontender Lower extremities: no edema SKIN: nonjaundiced Neuro: grossly intact. Objective Data Vital Signs Vital Signs: Vital Signs - 24 hr 12/18/24 13:52 12/18/24 13:53 12/18/24 14:05 Temperature Pulse Rate 78 83 Respiratory Rate 17 18 Blood Pressure 105/70 101/64 Pulse Oximetry 99 97 99 Oxygen Delivery 12/18/24 14:15 12/18/24 14:16 12/18/24 14:30 Temperature Pulse Rate Respiratory Rate Blood Pressure 94/59 L 107/72 Pulse Oximetry 96 99 97 Oxygen Delivery 12/18/24 14:31 12/18/24 14:45 12/18/24 14:46 Temperature Pulse Rate Respiratory Rate Blood Pressure 113/70 Pulse Oximetry 99 98 97 Oxygen Delivery 12/18/24 15:12 12/18/24 15:15 12/18/24 15:16 Temperature Pulse Rate 82 82 81 Respiratory Rate Blood Pressure 100/64 Pulse Oximetry 94 97 95 Oxygen Delivery 12/18/24 15:30 12/18/24 15:31 12/18/24 17:04 Temperature Pulse Rate 84 86 81 Respiratory Rate 17 Blood Pressure 83/38 L 102/70 Pulse Oximetry 97 98 97 Oxygen Delivery 12/18/24 17:30 12/18/24 18:00 12/18/24 20:00 Temperature 36.9 C 36.9 C Pulse Rate 81 81 91 Respiratory Rate 16 18 Blood Pressure 115/70 117/57 L Pulse Oximetry 94 96 Oxygen Delivery 12/18/24 20:00 12/18/24 20:00 12/18/24 22:00 Temperature Pulse Rate 84 84 Respiratory Rate Blood Pressure Pulse Oximetry Oxygen Delivery Room Air 12/18/24 23:41 12/19/24 00:00 12/19/24 00:00 Temperature 37.2 C Pulse Rate 88 85 Respiratory Rate 18 Blood Pressure 99/52 L Pulse Oximetry 95 Oxygen Delivery Room Air 12/19/24 04:00 12/19/24 04:00 12/19/24 04:00 Temperature 37.2 C Pulse Rate 90 107 H Respiratory Rate 16 Blood Pressure 111/75 Pulse Oximetry 93 Oxygen Delivery Room Air 12/19/24 06:00 12/19/24 08:00 12/19/24 08:00 Temperature 36.7 C Pulse Rate 84 78 Respiratory Rate 18 Blood Pressure 120/66 Pulse Oximetry 98 Oxygen Delivery Room Air 12/19/24 08:00 12/19/24 10:00 12/19/24 11:43 Temperature 36.5 C Pulse Rate 89 77 77 Respiratory Rate 18 Blood Pressure 112/70 Pulse Oximetry 97 Oxygen Delivery 12/19/24 12:00 12/19/24 12:00 Temperature Pulse Rate 85 Respiratory Rate Blood Pressure Pulse Oximetry Oxygen Delivery Room Air Intake/Output Intake/Output: Intake & Output 12/16/24 12/17/24 12/18/24 12/19/24 23:59 23:59 23:59 23:59 Intake Total 1750 1360 Balance 1750 1360 Meds/Results Medications: Active Medications Generic Name Dose Route Start Last Admin Trade Name Freq PRN Reason Stop Dose Admin Aspirin 81 mg 12/19/24 09:00 12/19/24 08:58 Aspirin 81 Mg Enteric Tablet PO 81 mg DAILY STUART Administration Lactated Ringer's 1,000 mls @ 150 mls/hr 12/19/24 01:45 12/19/24 09:00 Lr - Lactated Ringers Iv IV CONT 150 mls/hr .Q6H40M STUART Administration Levothyroxine Sodium 100 mcg 12/19/24 06:30 12/19/24 06:19 Levothyroxine Sodium 100 Mcg Tablet PO 100 mcg DAILY@0630 STUART Administration Morphine Sulfate 2 mg 12/18/24 16:53 Morphine Sulfate (*Crx) 2 Mg/Ml Inj IV PUSH Q5M PRN Pain Rated 4-6 Nitroglycerin 0.4 mg 12/18/24 16:53 Nitroglycerin Sl 0.4 Mg Tablet SUBLINGUAL Q5MIN PRN Chest Pain Ondansetron HCl 4 mg 12/18/24 14:58 Ondansetron Inj 4 Mg/2 Ml Vial IV PUSH Q4H PRN Nausea Pantoprazole Sodium 40 mg 12/19/24 09:00 12/19/24 08:58 Pantoprazole 40 Mg Tablet PO 40 mg Q12HR STUART Administration Perflutren Lipid Microsphere 0 ml 12/18/24 16:53 Perflutren Lipid Microspheres 1.5 Ml Vial Diluted To 10 Ml Total Volume IV PUSH 12/21/24 16:58 ONCE PRN adequate visualization Protocol Pravastatin Sodium 20 mg 12/19/24 09:00 12/19/24 08:58 Pravastatin Sodium 20 Mg Tablet PO 20 mg DAILY STUART Administration Vancomycin HCl 125 mg 12/19/24 00:00 12/19/24 12:14 Vancomycin Hcl 125 Mg Oral Capsule PO 12/29/24 00:00 125 mg Q6HR STUART Administration Radiology Results: ITS Impressions Chest X-Ray 12/18/24 13:05 IMPRESSION: Small bilateral pleural effusions without focal infiltrate. Abdomen/Pelvis CT 12/18/24 13:52 IMPRESSION: Right-sided diverticulosis. Postoperative change. Nonobstructing calcification within the right kidney. Findings within the liver which most likely represent benign cysts. Given patient's history (of breast cancer), further evaluation (nonemergently) with contrast-enhanced cross-sectional imaging of the abdomen (CT or MRI) with liver mass protocol is recommended. Labs Labs: Laboratory Results - last 24 hr 12/18/24 12/18/24 12/18/24 11:56 15:04 16:03 WBC RBC Hgb Hct MCV MCH MCHC RDW Plt Count MPV Immature Gran % (Auto) Neut % (Auto) Lymph % (Auto) Ceiba % (Auto) Eos % (Auto) Baso % (Auto) Lymph # (Auto) Ceiba # (Auto) Eos # (Auto) Baso # (Auto) Abs Immat Gran (auto) Absolute Neuts (auto) Absolute Nucleated RBC Nucleated RBC % Sodium Potassium Chloride Carbon Dioxide Anion Gap BUN Creatinine Estim Creat Clear Calc Estimated GFR Glucose Calcium Total Bilirubin AST ALT Alkaline Phosphatase Troponin I 0.544 H* Total Protein Albumin Triglycerides 129 Cholesterol 151 LDL Cholesterol Direct 67 HDL Direct 39 Urine Color Yellow Urine Appearance Clear Urine pH 6.0 Ur Specific Peoa > 1.045 H Urine Protein 1+ H Urine Glucose (UA) Negative Urine Ketones Negative Ur Blood (Man) Negative Urine Nitrate Negative Urine Bilirubin Negative Urine Urobilinogen 0.2 Add Ur Microanalysis Reviewed Leukocyte Esterase Rfl Negative Urine RBC 0-2 Urine WBC 0-5 Ur Squamous Epith Cells None seen Urine Bacteria None seen Urine Casts 0-2 C. difficile (PCR) Positive A* 12/18/24 12/19/24 21:54 04:17 WBC 13.9 H RBC 3.60 L Hgb 10.1 L Hct 31.5 L MCV 87.5 MCH 28.1 MCHC 32.1 RDW 14.4 Plt Count 221 MPV 11.2 H Immature Gran % (Auto) 0.6 H Neut % (Auto) 75.7 H Lymph % (Auto) 11.2 L Ceiba % (Auto) 9.4 H Eos % (Auto) 2.4 Baso % (Auto) 0.7 Lymph # (Auto) 1.56 Ceiba # (Auto) 1.3 H Eos # (Auto) 0.3 Baso # (Auto) 0.1 Abs Immat Gran (auto) 0.09 H Absolute Neuts (auto) 10.5 H Absolute Nucleated RBC 0.000 Nucleated RBC % 0.0 Sodium 134 L Potassium 3.3 L Chloride 103 Carbon Dioxide 24 Anion Gap 7 BUN 22 H Creatinine 1.21 H Estim Creat Clear Calc 40 Estimated GFR 44 L Glucose 106 Calcium 8.3 L Total Bilirubin 0.4 AST 23 ALT 12 Alkaline Phosphatase 69 Troponin I 0.490 H* Total Protein 6.6 Albumin 3.4 L Triglycerides Cholesterol LDL Cholesterol Direct HDL Direct Urine Color Urine Appearance Urine pH Ur Specific Peoa Urine Protein Urine Glucose (UA) Urine Ketones Ur Blood (Man) Urine Nitrate Urine Bilirubin Urine Urobilinogen Add Ur Microanalysis Leukocyte Esterase Rfl Urine RBC Urine WBC Ur Squamous Epith Cells Urine Bacteria Urine Casts C. difficile (PCR)
--- NOTE | 2024-12-19 18:13 | PC.NURSE ---
PT admits to severe claustrophobia and expresses concern for MRI test. PT states she has a open MRI scheduled by her primary PCP for liver lesions in December. Spoke with Dr Grimes who is ok with cancelling current MRI order and patient can attend her current MRI. PT agreeable to plan.
[2024-12-20] VITALS (15 sets, daily range): BP systolic 132–148; BP diastolic 72–93; PULSE 71–85; RESP 14–18; TEMP 36.6–37.2; O2SAT 95–100; BMI 31.5
[2024-12-20] MEDS: VANCOMYCIN HCL 125 MG ORAL CAPSULE PO ×5 (00:08→23:23)
[2024-12-20] MEDS: LACTATED RINGERS 1,000 ML 100 ML IV CONT ×2 (03:33→16:34)
[2024-12-20 04:47] LABS: Albumin Level 3.0 g/dL (3.5-5.1); Anion Gap 6 mmol/L (4-12); Blood Urea Nitrogen 13 mg/dL (7-17); Calcium 8.1 mg/dL (8.4-10.2); Carbon Dioxide 26 mmol/L (22-30); Chloride 108 mmol/L (98-107); Estimated CRCL calculation 45 ml/min; Estimated Glomerular Filt Rate 52; Glucose 108 mg/dL (65-110); Magnesium 1.9 mg/dL (1.6-2.3); Potassium 3.3 mmol/L (3.4-5.0); Sodium 140 mmol/L (137-145)
[2024-12-20] MEDS: LEVOTHYROXINE SODIUM 100 MCG TABLET PO (05:55)
[2024-12-20] MEDS: PRAVASTATIN SODIUM 20 MG TABLET PO (08:19)
[2024-12-20] MEDS: PANTOPRAZOLE 40 MG TABLET PO ×2 (08:19→20:16)
[2024-12-20] MEDS: ASPIRIN 81 MG ENTERIC TABLET PO (08:19)
[2024-12-20] MEDS: POTASSIUM CHLORIDE 20 MEQ PACKET (FOR LIQUID) 40 MEQ PO (10:00)
--- NOTE | 2024-12-20 10:53 | P.PNIM_ITS ---
Progress Note: A&P Assessment and Plan (1) Elevated troponin: Code(s): R79.89 - Other specified abnormal findings of blood chemistry Status: Acute Assessment and Plan: Trend troponin Cardiology consulted Plan for echocardiogram EKG as needed No need for heparin at this time (2) Hyperlipidemia: Code(s): E78.5 - Hyperlipidemia, unspecified Status: Acute Assessment and Plan: Continue pravastatin (3) Hypokalemia: Code(s): E87.6 - Hypokalemia Status: Acute Assessment and Plan: Repeat as needed BMP in the morning (4) C. difficile diarrhea: Code(s): A04.72 - Enterocolitis due to Clostridium difficile, not specified as recurrent Status: Acute Assessment and Plan: Oral vancomycin (5) Liver lesion: Code(s): K76.9 - Liver disease, unspecified Status: Acute Assessment and Plan: Findings within the liver which most likely represent benign cysts. Given patient's history (of breast cancer), further evaluation (nonemergently) with contrast-enhanced cross-sectional imaging of the abdomen (CT or MRI) with liver mass protocol is recommended. MRI liver mass protocol pending Plan patient presented with c/o diarrhea and is found to have C diff, and persisting has several loos BM, patient is being treated with vancomycin 125mg q6 PO, today patient still has loose BM however her symptoms are improving, BM are less frequent, abdominal cramping has improved, patient is also found to have elevated tropes, patient was seen by copy writer does not suspect acute plaque rupture, to further evaluate ordered cardiac ECHO, suggested if there is any significant structural abnormalities further recommendation to follow. patient remain clinical stable, will monitor Subjective Date/time seen: 12/20/24 10:53 Interval history: Dehydration and diarrhea H&P Narrative: 74-year-old female who headache appendectomy about a month ago. She states that she has had diarrhea since. Today she is feeling weak and fatigue so she presented to the emergency room. She states that she feels extremely dehydrated. She states that ever since she has had her appendix taken out she is not felt the same. She also complains of leg swelling and muscle cramps. She denies vomiting or nausea. Leukocytosis at 17.0, sodium 135, potassium 3.1, 26 creatinine 1.51, GFR of 34 troponin of 0.527 followed by 0.544, proBNP of 4500, UA negative for infection, C diff pending, liver cysts, right-sided diverticulosis. Chest x-ray with bilateral small pleural effusions. patient presented with c/o diarrhea and is found to have C diff, and persisting has several loos BM, patient is being treated with vancomycin 125mg q6 PO, today patient still has loose BM however her symptoms are improving, BM are less frequent, abdominal cramping has improved, patient is also found to have elevated tropes, patient was seen by copy writer does not suspect acute plaque rupture, to further evaluate ordered cardiac ECHO, suggested if there is any significant structural abnormalities further recommendation to follow. patient remain clinical stable, will monitor Review of Systems Review of Systems: 12 systems were reviewed and are negativ e except for as per HPI. Exam Narrative: Patient is comfortable, NAD HEENT: eyes are clear and none icteric LUNGS:CTA HEART: RR S1S2 ABD: BS+, Soft and nontender Lower extremities: no edema SKIN: nonjaundiced Neuro: grossly intact. Objective Data Vital Signs Vital Signs: Vital Signs - 24 hr 12/19/24 11:43 12/19/24 12:00 12/19/24 12:00 Temperature 36.5 C Pulse Rate 77 85 Respiratory Rate 18 Blood Pressure 112/70 Pulse Oximetry 97 Oxygen Delivery Room Air Fraction of Inspired Oxygen 12/19/24 14:00 12/19/24 16:00 12/19/24 16:00 Temperature 36.9 C Pulse Rate 75 90 Respiratory Rate 20 Blood Pressure 131/71 Pulse Oximetry 97 Oxygen Delivery Room Air Fraction of Inspired Oxygen 12/19/24 16:00 12/19/24 18:00 12/19/24 19:43 Temperature 36.6 C Pulse Rate 85 87 81 Respiratory Rate 16 Blood Pressure 118/58 L Pulse Oximetry 96 Oxygen Delivery Fraction of Inspired Oxygen 12/19/24 20:00 12/19/24 20:00 12/19/24 20:20 Temperature Pulse Rate 80 83 Respiratory Rate 20 Blood Pressure Pulse Oximetry 95 Oxygen Delivery Room Air Room Air Fraction of Inspired Oxygen 21 12/19/24 22:00 12/19/24 23:59 12/20/24 00:00 Temperature 37.2 C Pulse Rate 84 85 Respiratory Rate 18 Blood Pressure 100/45 L Pulse Oximetry 95 Oxygen Delivery Room Air Fraction of Inspired Oxygen 12/20/24 00:00 12/20/24 02:00 12/20/24 04:00 Temperature 37.2 C Pulse Rate 81 72 74 Respiratory Rate 16 Blood Pressure 132/74 Pulse Oximetry 95 Oxygen Delivery Fraction of Inspired Oxygen 12/20/24 04:00 12/20/24 04:00 12/20/24 06:00 Temperature Pulse Rate 75 75 Respiratory Rate Blood Pressure Pulse Oximetry Oxygen Delivery Room Air Fraction of Inspired Oxygen 12/20/24 07:37 Temperature 36.8 C Pulse Rate 75 Respiratory Rate 18 Blood Pressure 138/77 Pulse Oximetry 97 Oxygen Delivery Fraction of Inspired Oxygen Intake/Output Intake/Output: Intake & Output 12/17/24 12/18/24 12/19/24 12/20/24 23:59 23:59 23:59 23:59 Intake Total 1750 2687.5 1252.5 Balance 1750 2687.5 1252.5 Meds/Results Medications: Active Medications Generic Name Dose Route Start Last Admin Trade Name Freq PRN Reason Stop Dose Admin Aspirin 81 mg 12/19/24 09:00 12/20/24 08:19 Aspirin 81 Mg Enteric Tablet PO 81 mg DAILY STUART Administration Lactated Ringer's 1,000 mls @ 100 mls/hr 12/19/24 01:45 12/20/24 03:33 Lr - Lactated Ringers Iv IV CONT 100 mls/hr .Q10H STUART Administration Levothyroxine Sodium 100 mcg 12/19/24 06:30 12/20/24 05:55 Levothyroxine Sodium 100 Mcg Tablet PO 100 mcg DAILY@0630 STUART Administration Morphine Sulfate 2 mg 12/18/24 16:53 Morphine Sulfate (*Crx) 2 Mg/Ml Inj IV PUSH Q5M PRN Pain Rated 4-6 Nitroglycerin 0.4 mg 12/18/24 16:53 Nitroglycerin Sl 0.4 Mg Tablet SUBLINGUAL Q5MIN PRN Chest Pain Ondansetron HCl 4 mg 12/18/24 14:58 Ondansetron Inj 4 Mg/2 Ml Vial IV PUSH Q4H PRN Nausea Pantoprazole Sodium 40 mg 12/19/24 09:00 12/20/24 08:19 Pantoprazole 40 Mg Tablet PO 40 mg Q12HR STUART Administration Perflutren Lipid Microsphere 0 ml 12/18/24 16:53 Perflutren Lipid Microspheres 1.5 Ml Vial Diluted To 10 Ml Total Volume IV PUSH 12/21/24 16:58 ONCE PRN adequate visualization Protocol Pravastatin Sodium 20 mg 12/19/24 09:00 12/20/24 08:19 Pravastatin Sodium 20 Mg Tablet PO 20 mg DAILY STUART Administration Vancomycin HCl 125 mg 12/19/24 00:00 12/20/24 05:55 Vancomycin Hcl 125 Mg Oral Capsule PO 12/29/24 00:00 125 mg Q6HR STUART Administration Radiology Results: ITS Impressions Chest X-Ray 12/18/24 13:05 IMPRESSION: Small bilateral pleural effusions without focal infiltrate. Abdomen/Pelvis CT 12/18/24 13:52 IMPRESSION: Right-sided diverticulosis. Postoperative change. Nonobstructing calcification within the right kidney. Findings within the liver which most likely represent benign cysts. Given patient's history (of breast cancer), further evaluation (nonemergently) with contrast-enhanced cross-sectional imaging of the abdomen (CT or MRI) with liver mass protocol is recommended. Labs Labs: Laboratory Results - last 24 hr 12/20/24 04:00 Sodium 140 Potassium 3.3 L Chloride 108 H Carbon Dioxide 26 Anion Gap 6 BUN 13 D Creatinine 1.05 H Estim Creat Clear Calc 45 Estimated GFR 52 L Glucose 108 Calcium 8.1 L Phosphorus 3.2 Magnesium 1.9 Albumin 3.0 L
--- NOTE | 2024-12-20 16:58 | ECHO_ITS ---
Patient Info Name: Angelica Pearson Age: 74 years : 1950 Gender: Female Ht: 65 in Wt: 176 lbs BSA: 1.94 m2 HR: 75 bpm BP: 132 / 74 mmHg Heart Rhythm: Sinus Rhythm Technical Quality: Fair Exam Date: 12/20/2024 11:36 AM Patient Status: I Admit Date: 12/18/2024 Exam Type: CA echo doppler color flow Complete two-dimensional, color flow and Doppler transthoracic echocardiogram is performed. Staff Referring Physician: Annamaria Santiago Completion Manager: Jodi Marr Attending Provider: Cisco Love Summary 1. Complete two-dimensional, color flow and Doppler transthoracic echocardiogram is performed. 2. There is normal biventricular size and systolic function. 3. There are no significant valvular abnormalities. 4. There is a small size pericardial effusion that is circumferential. 5. The left atrium is moderately dilated. Left Ventricle The left ventricle is normal in size and systolic function. There is mild concentric left ventricular hypertrophy. The left ventricular ejection fraction is visually estimated to be 60-65%. Right Ventricle The right ventricle is normal in size and systolic function. Left Atria The left atrium is moderately dilated. Right Atria The right atrium is normal size. Atrial Septum The atrial septum is normal. Aortic Valve The aortic valve is trileaflet and opens well. There is no aortic regurgitation. Pulmonic Valve The pulmonic valve is not well visualized. There is no color Doppler evidence of pulmonic valve regurgitation. Mitral Valve The mitral valve is normal. There is mild mitral regurgitation. Tricuspid Valve The tricuspid valve is normal. There is trace tricuspid regurgitation. Pericardium/Pleural There is a small size circumferential pericardial effusion. Inferior Vena Cava Normal inferior vena cava with <50% collapse upon inspiration consistent with elevated right atrial pressure, 8 mmHg. Aorta The aortic root at the level of the sinus of Valsalva measures 2.8 cm in diameter. Left Ventricular Outflow Tract Name Value Normal LVOT 2D LVOT Diameter 2.0 cm LVOT Doppler LVOT Peak Velocity 112 cm/s LVOT Peak Gradient 5 mmHg LVOT Mean Gradient 3 mmHg LVOT VTI 21 cm LVOT VTI/AV VTI Ratio 0.7 LVOT Stroke Volume 68 ml LVOT CO 5.4 l/min LVOT CI 2.8 l/min/m2 Pulmonic Valve Name Value Normal PV Doppler PV Peak Velocity 88 cm/s PV Peak Gradient 3 mmHg Mitral Valve Name Value Normal MV Regurgitation Doppler MR Peak Gradient 116 mmHg MV Diastolic Function MV E Peak Velocity 103 cm/s MV A Peak Velocity 64 cm/s MV E/A 1.6 MV Decel Time (PW) 150 ms MV Annular TDI MV E/e' (Septal) 14.5 MV E/e' (Lateral) 11.4 MV E/e' (Average) 12.9 Tricuspid Valve Name Value Normal TV Regurgitation Doppler TR Peak Velocity 290 cm/s TR Peak Gradient 34 mmHg Estimated PAP/RSVP RA Pressure 8 mmHg <=5 PA Systolic Pressure 42 mmHg <36 RV Systolic Pressure 42 mmHg <36 TV Annular TDI TV Lateral Sariah s' Velocity 20.1 cm/s >=9.5 Aorta Name Value Normal Ascending Aorta Ao Root Diameter (MM) 3.0 cm Ao Root Diam Index (MM) 1.6 cm/m2 Aortic Valve Name Value Normal AV Doppler AV Peak Velocity 166 cm/s AV Peak Gradient 11 mmHg AV Mean Gradient 6 mmHg AV VTI 33 cm AV Area (Cont Eq VTI) 2.1 cm2 >=3.0 AV Area (Cont Eq Melchor) 2.2 cm2 AV DI (Melchor) 0.68 AV Regurgitation 2D LVOT Area 3.2 cm2 Ventricles Name Value Normal LV Dimensions 2D/MM IVS Diastolic Thickness (2D) 1.0 cm 0.6-1.0 LVID Diastole (2D) 5.0 cm 3.8-5.2 LVIW Diastolic Thickness (2D) 1.3 cm 0.6-0.9 LVID Systole (2D) 2.9 cm 2.2-3.5 LVOT Diameter 2.0 cm LV Mass (2D Cubed) 227.20 g 67.00-162.00 LV Mass Index (2D Cubed) 117 g/m2 43-95 Relative Wall Thickness (2D) 0.52 <=0.42 LV Fractional Shortening/Ejection Fraction 2D/MM LV Fractional Shortening (2D) 42 % 27-45 LV EF (2D Teichholz) 72 % LV Diastolic Volume (4C MOD) 133 ml LV EF (4C MOD) 73 % LV Diastolic Volume (2C MOD) 66 ml LV EF (2C MOD) 64 % LV Diastolic Volume (BP MOD) 97 ml 46-106 LV Diastolic Volume Index (BP MOD) 50 ml/m2 29-61 LV Systolic Volume (BP MOD) 31 ml 14-42 LV Systolic Volume Index (BP MOD) 16 ml/m2 8-24 LV EF (BP MOD) 68 % 54-74 LV Diastolic Length (4C) 8.5 cm LV Systolic Length (4C) 7.0 cm LV Stroke Volume (4C MOD) 98 ml Atria Name Value Normal LA Dimensions LA Dimension (MM) 4.8 cm 2.7-3.8 LA Volume (4C A-L) 83 ml LA Volume (BP A-L) 83 ml RA Dimensions RA Systolic Major Decherd Length (4C) 5.4 cm 2.2-2.8 RA Area (4C) 14.7 cm2 <=18.0 Report Signatures
[2024-12-21] VITALS (10 sets, daily range): BP systolic 115–149; BP diastolic 53–88; PULSE 67–82; RESP 12–16; TEMP 36.5–37.1; O2SAT 96–100
[2024-12-21] MEDS: LACTATED RINGERS 1,000 ML 100 ML IV CONT ×2 (04:21→14:24)
[2024-12-21 04:30] LABS: Albumin Level 2.9 g/dL (3.5-5.1); Anion Gap 5 mmol/L (4-12); Blood Urea Nitrogen 12 mg/dL (7-17); Calcium 8.1 mg/dL (8.4-10.2); Carbon Dioxide 25 mmol/L (22-30); Chloride 108 mmol/L (98-107); Estimated CRCL calculation 50 ml/min; Estimated Glomerular Filt Rate 56; Glucose 101 mg/dL (65-110); Magnesium 1.8 mg/dL (1.6-2.3); Potassium 3.6 mmol/L (3.4-5.0); Sodium 138 mmol/L (137-145)
[2024-12-21] MEDS: LEVOTHYROXINE SODIUM 100 MCG TABLET PO (05:41)
[2024-12-21] MEDS: VANCOMYCIN HCL 125 MG ORAL CAPSULE PO ×3 (05:41→17:00)
[2024-12-21] MEDS: PANTOPRAZOLE 40 MG TABLET PO (08:45)
[2024-12-21] MEDS: ASPIRIN 81 MG ENTERIC TABLET PO (08:45)
[2024-12-21] MEDS: PRAVASTATIN SODIUM 20 MG TABLET PO (08:45)
--- NOTE | 2024-12-21 16:57 | P.DS_ITS ---
DS: Admitting Diagnosis Discharge Date 12/21/24 Admitting Diagnosis Dehydration and diarrhea DS: Discharge Diagnosis Discharge Diagnosis (1) Elevated troponin: Code(s): R79.89 - Other specified abnormal findings of blood chemistry Status: Acute Assessment and Plan: Trend troponin Cardiology consulted Plan for echocardiogram EKG as needed No need for heparin at this time (2) Hyperlipidemia: Code(s): E78.5 - Hyperlipidemia, unspecified Status: Acute Assessment and Plan: Continue pravastatin (3) Hypokalemia: Code(s): E87.6 - Hypokalemia Status: Acute Assessment and Plan: Repeat as needed BMP in the morning (4) C. difficile diarrhea: Code(s): A04.72 - Enterocolitis due to Clostridium difficile, not specified as recurrent Status: Acute Assessment and Plan: Oral vancomycin (5) Liver lesion: Code(s): K76.9 - Liver disease, unspecified Status: Acute Assessment and Plan: Findings within the liver which most likely represent benign cysts. Given patient's history (of breast cancer), further evaluation (nonemergently) with contrast-enhanced cross-sectional imaging of the abdomen (CT or MRI) with liver mass protocol is recommended. MRI liver mass protocol pending Plan patient presented with c/o diarrhea and is found to have C diff, and persisting has several loos BM, patient is being treated with vancomycin 125mg q6 PO, today patient still has loose BM however her symptoms are improving, BM are less frequent, abdominal cramping has improved, patient is also found to have elevated tropes, patient was seen by home stager does not suspect acute plaque rupture, to further evaluate ordered cardiac ECHO, suggested if there is any significant structural abnormalities further recommendation to follow. patient remain clinical stable, will monitor DS: Summary Hospital Course Hospital Course: patient presented with c/o diarrhea and is found to have C diff, and persisting has several loos BM, patient is being treated with vancomycin 125mg q6 PO, today patient still has loose BM however her symptoms are improving, BM are less frequent, abdominal cramping has improved, patient is also found to have elevated tropes, patient was seen by home stager does not suspect acute plaque rupture, to further evaluate ordered cardiac ECHO, suggested if there is any significant structural abnormalities further recommendation to follow. patient remain clinical stable, will monitor. patient clinical symptoms are improving, her cardiac echo is normal, and chest pain has resolved, will discharge patient today. Time Spent with Patient Time attestation: Total time spent providing and/or coordinating discharge services: Exam Narrative: Patient is comfortable, NAD HEENT: eyes are clear and none icteric LUNGS:CTA HEART: RR S1S2 ABD: BS+, Soft and nontender Lower extremities: no edema SKIN: nonjaundiced Neuro: grossly intact. DS: Data Data Completed and Pending Labs on day of discharge: Labs from last 24 hours 12/21/24 03:52 Sodium 138 Potassium 3.6 Chloride 108 H Carbon Dioxide 25 Anion Gap 5 BUN 12 Creatinine 0.98 Estim Creat Clear Calc 50 Estimated GFR 56 L Glucose 101 Calcium 8.1 L Phosphorus 3.4 Magnesium 1.8 Albumin 2.9 L Preliminary micro results at discharge 12/18/24 14:48 Blood Culture - Preliminary Blood 12/18/24 15:04 Blood Culture - Preliminary Blood Discharge Plan Discharge Attending physician on discharge: Benita Grimes Consulting providers: Jayesh Zhang; Annamaria Santiago; Natty Calvert Discharging Clinician: Benita Grimes Patient Disposition: Home Activity: as tolerated Diet: heart healthy Discharge Instructions: patient is instructed follow universal precaution and hygiene, avoid general public, follow up primary care provider as soon as possible, patient is instructed if any symptoms worsen to go to nearest ER. Patient Instructions: Antibiotic Form, Vancomycin (By mouth), C. Diff (Clostridioides Difficile) Infection (DC), High Troponin Levels (GEN) Patient Language: Niuean Stand Alone Forms: General Discharge Information Follow-up/Referrals: Gonzalo Crenshaw DO [Primary Care Provider] - Discharge Medications: New vancomycin 125 mg Capsule 125 mg PO Q6HR Qty: 40 0RF Continued valsartan-hydrochlorothiazide 320-25 mg tablet 1 tablet PO DAILY Qty: 90 3RF calcium carbonate [Calcium 500] 500 mg calcium (1,250 mg) Tablet 1,200 mg PO DAILY omega 2-uln-kjq-fish oil [Fish Oil] 1,000 mg (120 mg-180 mg) Capsule 1 cap PO DAILY levothyroxine [Levoxyl] 100 mcg tablet 100 mcg PO DAILY pantoprazole 40 mg tablet,delayed release (DR/EC) 40 mg PO BID Qty: 180 1RF pravastatin 20 mg tablet 20 mg PO DAILY Qty: 90 1RF No Action buspirone 15 mg tablet 15 mg PO TID PRN (Reason: anxiety) Qty: 30 2RF furosemide [Lasix] 20 mg tablet 20 mg PO QAM Qty: 30 0RF Date of admission: 12/18/24 14:59 Primary Care Provider: Gonzalo Crenshaw Admitting Provider: Cisco Love Attending physician on admission: Benita Grimes Condition: Stable
== END 2024-12-21 17:34 | disposition home or self-care (01) | DRG 372 ==
LOC: ANHED 12:03 → ANHIMU 22:41
PROVIDERS: Emergency Medicine; Internal Medicine; Admitting Provider Internal Medicine; Emergency Provider General Practice; PCP Internal Medicine; Visit Provider Family Medicine
DX: A04.72 Enterocolitis due to Clostridium difficile, not specified as recurrent (principal); N17.9 Acute kidney failure, unspecified; E86.0 Dehydration; K21.9 Gastro-esophageal reflux disease without esophagitis; I10 Essential (primary) hypertension; E03.9 Hypothyroidism, unspecified; E78.5 Hyperlipidemia, unspecified; R73.03 Prediabetes; E87.6 Hypokalemia; K76.89 Other specified diseases of liver; Z85.3 Personal history of malignant neoplasm of breast; Z90.49 Acquired absence of other specified parts of digestive tract
CPT/HCPCS: 36415; 71045; 74177; 80053; 80061; 80069; 81001; 83605; 83690; 83735; 83880; 84484; 85025; 85610; 85730; 87040; 87045; 87046; 87427; 87493; 93005; 93306; 96361; 96374; 99285; A9270; J0696; J1836; J7120; Q9967

== ENCOUNTER 2025-03-01 00:19 | Day surgery (SDC) | payer BC, SELFPAY ==
[2025-02-22 15:46] VITALS: BMI 28.4
--- OUTSIDE RECORDS SUMMARY | 2025-03-01 00:21 | XMS_ITS | Encounter Summary ---
Author Organization [facility] Address [address] [place] [address] Phone Care Team Providers Care Refined Syrup Operator Name Role Phone Lavon Smith MD Primary Care Provider [phone] Gonzalo Crenshaw DO Primary Care Provider [phone] Shar Ricketts MD Primary Care Provider [phone] Gonzalo Crenshaw DO Primary Care Provider [phone] Encounter Details Date Type Department Care Team (Latest Contact Info) Description 09/07/2015 Orders Only [facility] Scanning, Provider Social History Tobacco Use Types Packs/Day Years Used Date Smoking Tobacco: Never Assessed Comments Unknown Sex and Gender Information Value Date Recorded Sex Assigned at Not on file 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
--- OUTSIDE RECORDS SUMMARY | 2025-03-01 00:21 | XMS_ITS | Clinical Summary ---
Author Organization [facility] Address [address] [place] [address] Care Team Providers Care Emergency Veterinary Technician Name Role Phone Gonzalo Crenshaw DO Primary Care Provider [phone] Allergies Active Allergy Reactions Criticality Noted Date Comments Sulfa (Sulfonamide Antibiotics) Stomach upset Low Medications Ca-D3-mag qr-xqdc-qxa-racheal -bor 600 mg calcium- 20 mcg-50 mg [...] and advised to contact her PCP or advanced manufacturing consultant Advised topical HC for itching as well [...] Encounters Date Type Department Care Team Description 12/20/2024 Orders Only [facility] [address] [place] [address] Jayesh Zhang MD from Last 3 Months Immunizations Immunization Administration Dates Next Due Influenza, Quadrivalent, Carol l Culture-based MDCK, Preservative Free, Antibiotic Free, Intramuscular 06/07/2022,03/06/2017 Influenza, Quadrivalent, Hig h Dose, Preservative Free, Intrr 04/06/2020 Influenza, Trivalent, High D ose, Split, Preservative Free, Intramuscular 04/01/2019 Influenza, Unspecified 06/02/2014,06/28/2013 Pneumococcal Conjugate PCV 13 04/06/2020, 019 Tdap 07/07/2019 Surgical History Surgery Date Site/Laterality Comments NM DELIVERY ONLY Section - (Added by TW Conv) THYROIDECTOMY, PARTIAL Near-Total Thyroidectomy - (Added by TW Conv) MASTECTOMY Breast Surgery Mastectomy - (Added by TW Conv) NM COLONOSCOPY FLX DX W/DAINA J SPEC WHEN [...] (Added by TW Conv) Acute myocardial infarction Acut e myocardial infarction - (Added by TW Conv) [...] Relation Name Comments Diabetes Father Diabetes Mellit - (Added by TW Conv) Heart disease Father Heart Disease - (Added by TW Conv) Colon cancer Maternal Grandmother alive at 97 Mother Breast cancer Mother's Sister Great Breast Canc er - (Added by TW Conv) CONTROL INSPECTOR malignancy Niece Colon cancer Sister Alive at [...] on file 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 Gender Identity Not on file Sexual [...] Pneumococcal vaccine 65+ (2 of 2 - PCV20 or PCV21) 04/06/2021 04/06/2020, 04/01/2019 Covid-19 Vaccine (4 - 2024-2 6 season) 2025 03/01/2021, 07/24/2020, 07/01/2020 Influenza Vaccine (#1) 2025 , 04/06/2020, 04/01/2019, Additional history exists Breast Cancer Screening-Mammogram 08/20/2025 08/20/2024, 08/06/2023, 07/31/2022, Additional history exists Well Visit 65+ 08/20/2025 08/20/2024 DTaP/Tdap/Td Vaccine (2 - Td or Tdap) 07/07/2029 07/07/2019 Procedures Procedure Name Priority Date/Time Associated Diagnosis Comments CARDIOLOGY DOCUMENT SCAN Routine 12/18/2024 4:01 PM CDT SCREENING MAMMOGRAM RIGHT W CLAUDIO UNILATERAL ONLY Schedule Routine, Read Routine (OP Routine) 08/20/2024 10:36 AM CDT Screening mammogram, encounter for from Last 3 Months or Most Recently Relevant to Health Maintenance Results * Cardiology Document Scan (12/18/2024 4:01 PM CDT) Anatomical Region Laterality Modality Other us Jayesh Zhang MD [facility] C[facility] SERVICES PROCEDURES F inal Result * Screening Mammogram Right W Claudio Unilateral Only (08/20/2024 10:36 AM CDT) Anatomical Region Laterality Modality Breast Right Mammography Narrative 08/23/2024 10:51 AM CDT Mammogram Technique: Right Breast Digital Breast Tomosynthesis, Unilateral C-view 2D Screening mammogram. Views obtained: right craniocaudal and right mediolateral oblique. Computer Aided Detection was performed. Mammogram Findings: The present examination has been compared to prior imaging studies performed at [facility] on 07/04/2021, 07/31/2022 and 08/06/2023. There [...] compared to prior imaging studies performed at [facility] on 07/04/2021, 07/31/2022 and 08/06/2023. There [...] Most Recently Relevant to Health Maintenance Insurance [employer] [place] [employer] [facility] [facility] Member Subscriber Plan / Payer (Ef fective 2018-Present) Name:Aron Li Relation to Subscriber:Self Name:ARON LI Payer ID:[id number] (NAIC) Type: ALLIANCE Address: [address] [place] [id number] MEDICARE [facility] MEDICARE Care Teams Emergency Veterinary Technician Relationship Specialty Start Date End Date Gonzalo Crenshaw DO PCP - General Internal Medicine 08/09/24
[2025-03-01 11:48] VITALS: BP 148/79; PULSE 69; RESP 16; TEMP 36.4; O2SAT 99; BMI 28.1
[2025-03-01] MEDS: LACTATED RINGERS 1,000 ML 150 ML IV CONT (12:11)
--- NOTE | 2025-03-01 13:03 | P.PNAN_ITS ---
Anes - Initial Pre Proc Eval Procedure: Operation Date: 03/01/25 13:00 Proposed Procedures p Screening Colonoscopy - Shane Moore MD Date/Time: 03/01/25 13:03 Surgeon: Shane Moore MD Pre Op Diagnosis: Family history of malignant neoplasm of digestive Patient Data Age: 74 Gender: F Height: 1.65 m Weight: 76.7 kg Last Vital Signs Temp 36.4 C L 03/01/25 11:48 Pulse 69 03/01/25 11:48 Resp 16 03/01/25 11:48 BP 148/79 H 03/01/25 11:48 Pulse Ox 99 03/01/25 11:48 O2 Del Method Room Air 03/01/25 11:48 Allergies Allergy/AdvReac Type Severity Reaction Status Date / Time clarithromycin Allergy Unknown Gastrointestinal Verified 03/01/25 11:54 Upset Sulfa (Sulfonamide Allergy Unknown Gastrointestinal Verified 03/01/25 11:54 Antibiotics) Upset Home Medications ?Medication ?Instructions ?Recorded ?Confirmed ?Type calcium carbonate (Calcium 500) 1,200 mg PO DAILY 09/2303/01/25 History omega 0-poe-mjj-fish oil 1,000 mg 1 cap PO DAILY 10/1103/01/25 History (120 mg-180 mg) capsule (Fish Oil) valsartan 320 1 tablet PO DAILY #90 tabs 0 09/29/24 03/01/25 Rx mg-hydrochlorothiazide 25 mg tablet pantoprazole 40 mg tablet,delayed 40 mg PO BID #180 ta bs 10/04/24 03/01/25 Rx release pravastatin 20 mg tablet 20 mg PO DAILY #90 tabs 08/1703/01/25 Rx levothyroxine 100 mcg tablet 100 mcg PO DAILY 12/18/24 03/01/25 History (Levoxyl) buspirone 15 mg tablet 15 mg PO TID PRN anxiety #30 tabs 12/29/24 02/22/25 Rx Saccharomyces boulardii 250 mg 250 mg PO DAILY 5 03/01/25 History capsule (Daily Probiotic (S. boulardii)) furosemide 20 mg tablet See Rx Instructions .Route 0 01/19/25 03/01/25 Rx .COMPLEX #90 tabs Patient hx anesthesia problems: none Family hx anesthesia problems: none Results Review: All pre-operative results and documents have been reviewed as part of the pre- operative evaluation. [facility] Past Medical History Medical History (Updated 02/28/25 @ 09:48 by Baldo Lozano DO) Claustrophobia BMI 29.0-29.9,adult BMI 33.0-33.9,adult Other and unspecified hyperlipidemia Prediabetes BMI 34.0-34.9,adult Chronic GERD Essential (primary) hypertension Adult hypothyroidism Primary malignant neoplasm of breast Surgical History Surgical History S/P appendectomy Family History Family History Father Hypertension Family history of coronary artery disease Family history of heart disease in male family member before age 55 Family history of diabetes mellitus in first degree relative [place] Carcinoma of colon Grandparent Family history of coronary artery disease Carcinoma of colon Mother Other Cerebrovascular accident Diabetes mellitus Family history of cardiovascular disease Family history of gout Family history of malignant neoplasm Family history of malignant neoplasm of male breast Social History Social History (Updated 01/19/25 @ 12:50 by Jennifer Peters [facility]) Smoking status: Never smoker Second hand tobacco smoke exposure: Yes Alcohol intake: current Drinks per week: 1 Alcohol use details: mix drink Substance use: never Substance use type: does not use Do You Feel Safe in your Home?: Yes Lack of Transportation: No Lack of Food: Never True Current Housing: I Have Housing Concerned About Future Housing: No Difficulty Paying Gas/Electric Bills: No Difficulty Paying for Meds: No Currently Unemployed: No Education: High School Diploma/GED Difficulty w/ Childcare or Family Care: No Living arrangements: with family Occupation/Education: occupation 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 Informed Consent: The patient's anesthetic plan and its attendant risks and benefits were discussed with the patient/family/POA. Questions were solicited and answers provided to the satisfaction of the patient/family/POA.
--- NOTE | 2025-03-01 13:13 | PM.IMHP ---
H&P: [facility] History of Present Illness Date/Time: 03/01/25 13:13 Chief Complaint: History of colon polyps Narrative: The patient has a history of colonic polyps, the last colonoscopy was 5 years ago. Review of Systems Review of Systems: All systems reviewed & are unremarkable except as noted in HPI and below PMFSH Past Medical History Medical History (Updated 02/28/25 @ 09:48 by Baldo Lozano, ) Claustrophobia BMI 29.0-29.9,adult BMI 33.0-33.9,adult Other and unspecified hyperlipidemia Prediabetes BMI 34.0-34.9,adult Chronic GERD Essential (primary) hypertension Adult hypothyroidism Primary malignant neoplasm of breast Surgical History Surgical History S/P appendectomy Family History Family History Father Hypertension Family history of coronary artery disease Family history of heart disease in male family member before age 55 Family history of diabetes mellitus in first degree relative [place] Carcinoma of colon Grandparent Family history of coronary artery disease Carcinoma of colon Mother Other Cerebrovascular accident Diabetes mellitus Family history of cardiovascular disease Family history of gout Family history of malignant neoplasm Family history of malignant neoplasm of male breast Social History Social History (Updated 01/19/25 @ 12:50 by Jennifer Peters, [facility]) Smoking status: Never smoker Second hand tobacco smoke exposure: Yes Alcohol intake: current Drinks per week: 1 Alcohol use details: mix drink Substance use: never Substance use type: does not use Do You Feel Safe in your Home?: Yes Lack of Transportation: No Lack of Food: Never True Current Housing: I Have Housing Concerned About Future Housing: No Difficulty Paying Gas/Electric Bills: No Difficulty Paying for Meds: No Currently Unemployed: No Education: High School Diploma/GED Difficulty w/ Childcare or Family Care: No Living arrangements: with family Occupation/Education: occupation 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 Gender identity (if verbalized by the patient): Female Spiritual care concerns: No Meds Home Medications and Allergies Home Medications ?Medication ?Instructions ?Recorded ?Confirmed ?Type calcium carbonate (Calcium 500) 1,200 mg PO DAILY 10/12/19 03/01/25 History omega 2-vij-irm-fish oil 1,000 mg 1 cap PO DAILY 10/12/19 03/01/25 History (120 mg-180 mg) capsule (Fish Oil) valsartan 320 1 tablet PO DAILY #90 tabs 09/29/24 03/01/25 Rx mg-hydrochlorothiazide 25 mg tablet pantoprazole 40 mg tablet,delayed 40 mg PO BID #180 tabs 10/04/24 03/01/25 Rx release pravastatin 20 mg tablet 20 mg PO DAILY #90 tabs 10/26/24 03/01/25 Rx levothyroxine 100 mcg tablet 100 mcg PO DAILY 12/18/24 03/01/25 History (Levoxyl) buspirone 15 mg tablet 15 mg PO TID PRN anxiety #30 tabs 12/29/24 02/22/25 Rx Saccharomyces boulardii 250 mg 250 mg PO DAILY 01/19/25 03/01/25 History capsule (Daily Probiotic (S. boulardii)) furosemide 20 mg tablet See Rx Instructions .Route 01/19/25 03/01/25 Rx .COMPLEX #90 tabs Allergies Allergy/AdvReac Type Severity Reaction Status Date / Time clarithromycin Allergy Unknown Gastrointestinal Verified 03/01/25 11:54 Upset Sulfa (Sulfonamide Allergy Unknown Gastrointestinal Verified 03/01/25 11:54 Antibiotics) Upset Vital Signs Vital Signs - 24 hr 03/01/25 11:48 Temperature 97.5 F L Pulse Rate 69 Respiratory Rate 16 Blood Pressure 148/79 H Pulse Oximetry 99 Oxygen Delivery Room Air Exam Const: General: cooperative and healthy appearing Resp: Effort & Inspection: normal respiratory effort and able to speak in complete sentences Auscultation: clear to auscultation bilaterally Cardio: Rate: regular rate Rhythm: regular rhythm GI: Inspection: normal to inspection GI Palp: No No hepatosplenomegaly present Auscultation: normal bowel sounds Rectal Exam: deferred Skin: General skin exam: normal color Psych: Appearance: grossly normal Mental Status: mental status grossly normal Assessment and Plan Assessment and plan (1) History of colon polyps: Code(s): Z86.0100 - Personal history of colon polyps, unspecified Status: Acute Assessment and Plan: The patient is deemed a good candidate for the procedure. Consent signed. Will proceed. (2) Family history of colon cancer: Code(s): Z80.0 - Family history of malignant neoplasm of digestive organs Status: Acute
[2025-03-01 13:40] VITALS: BP 103/62; PULSE 81; RESP 20; O2SAT 99
[2025-03-01 13:50] VITALS: BP 122/75; PULSE 78; RESP 18; O2SAT 100
[2025-03-01 14:00] VITALS: BP 134/79; PULSE 70; RESP 18; O2SAT 100
== END 2025-03-01 14:09 | disposition home or self-care (01) ==
PROVIDERS: PCP Internal Medicine; Visit Provider Internal Medicine Gastroenterology
PROC: 0DJD8ZZ Inspection of Lower Intestinal Tract, Via Natural or Artificial Opening Endoscopic (ICD-10-PCS; CPT 45378; principal; 2025-03-01 13:00)
DX: Z12.11 Encounter for screening for malignant neoplasm of colon (principal); E78.49 Other hyperlipidemia; R73.03 Prediabetes; K21.9 Gastro-esophageal reflux disease without esophagitis; I10 Essential (primary) hypertension; E03.9 Hypothyroidism, unspecified; F40.240 Claustrophobia; Z98.890 Other specified postprocedural states; Z86.0100 Personal history of colon polyps, unspecified; Z85.3 Personal history of malignant neoplasm of breast; Z80.0 Family history of malignant neoplasm of digestive organs; Z80.3 Family history of malignant neoplasm of breast; Z82.49 Family history of ischemic heart disease and other diseases of the circulatory system
CPT/HCPCS: 45378; J2003; J2704; J7120